=== PATIENT | female | born 1940 | race Caucasian/White ===

== ENCOUNTER 2016-08-06 07:17 | Day surgery (SDC) | payer OTHER, MEDICARE ==
[~2016-08-06] VITALS: Ht 162.6 cm; Wt 67.6 kg
[~2016-08-06 07:17] MED LIST: ACETAMINOPHEN325 M3 PO; ACYCLOVIR800 MG PO; ADULT LOW DOSE81 M1 PO; ADVIL,NUPRIN,M200 MG PO; ADVIL200 MG PO; ASPIR 8181 M1 PO; ASPIR-LOW81 MG PO; BENTYL20 MG PO; BUMEX2 MG PO; BUPROPION HCL100 M1 PO; CARDIZEM CD,CA240 MG PO; CARDIZEM CD240 MG PO; CEPHALEXIN500 MG PO; CIPRO500 MG PO; CLONIDINE HCL0.1 MG PO; COLACE100 MG PO; Coumadin,Jantoven PO; DICYCLOMINE HCL20 MG PO; DOXYCYCLINE HY100 M3 PO; DRONABINOL2.5 MG PO; DULCOLAX10 MG PR; FEOSOL325 MG PO; FERROUS SULFAT325 MG PO; FLEET ENEMA-AD118 ML PR; FLORASTOR250 MG PO; FUROSEMIDE80 MG; Feosol PO; GLIPIZIDE; GLIPIZIDE10 MG PO; GLUCAGON1 MG IM; GLUCOPHAGE1000 MG PO; GLUCOPHAGE500 MG PO; GLUCOTROL10 MG PO; Glucotrol PO; HUMALOG100 UNIT/1 SC; HUMALOG100 UNIT/2 SC; HYDRALAZINE HCL50 MG PO; IRON; IRON PILL; JANUVIA25 M1 PO; JANUVIA25 MG PO; Januvia PO; K-DUR20 MEQ PO; Keflex PO; LACTULOSE10 GM/151 PO; LANTUS 10100 UNITS/ SC; LANTUS 3 M100 UNITS1 SC; LASIX80 MG PO; LEVAQUIN500 MG PO; LEVAQUIN750 MG PO; LEVEMIR FL100 UNIT/1 SC; LEVEMIR FL100 UNITS/ SC; LEVEMIR100 UNIT/2 SC; LEVOTHYROXINE; LEVOTHYROXINE137 MCG PO; LEVOTHYROXINE150 MCG PO; LIPITOR10 MG PO; LISINOPRIL10 MG PO; LISINOPRIL2.5 MG PO; LOPRESSOR25 MG PO; LOSARTAN POTASS25 MG PO; LYRICA50 MG PO; Lantus 3 ml Solostar SC; Lasix PO; Levothroid,Synthroid PO; Lovenox SC; MELATIN3 MG PO; MELATONIN10 M2 PO; METOLAZONE2.5 MG PO; METOPROLOL TART25 MG PO; MILK OF MAGN PO; MIRALAX17 GM PO; MIRALAX255 GM PO; NORCO 5/3251 TABLET PO; NOVOLOG 10100 UNITS/ SC; NOVOLOG PE100 UNITS/ SC; NOVOLOG100 UNIT/1 SC; NovoLOG Pen 3 ml SC; PANTOPRAZOLE SO20 MG PO; PANTOPRAZOLE SO40 MG PO; PHENERGAN25 MG PR; PHILLIPS'311 MG PO; POTASSIUM CHLO20 ME1 PO; PROCRIT10000 UNI1 IV; PROTONIX20 MG PO; PROTONIX40 MG PO; SENNA PLUS TAB1 EACH PO; SENNA8.6 MG PO; SERTRALINE HCL100 MG PO; SIMVASTATIN; SIMVASTATIN20 MG PO; SYNTHROID125 MCG PO; SYNTHROID137 MCG PO; SYNTHROID150 MCG PO; TEST STRIPS MC; THEOPHYLLINE; TRAMADOL HCL50 MG PO; TYLENOL REGULA325 MG PO; ULTRAM50 MG PO; WELLBUTRIN; WELLBUTRIN XL300 MG PO; WELLBUTRIN100 M1 PO; Wellbutrin XL PO; ZETIA10 MG PO; ZOCOR20 MG PO; ZOFRAN ODT8 MG PO; ZOFRAN4 MG PO; ZOFRAN8 MG PO; ZOLOFT100 MG PO; ZOLOFT25 MG PO; Zetia PO; Zocor PO; Zoloft PO; glipizide; januvia; levothyroxine; potassium chloride; sertraline; simvastatin
[2016-08-06 07:55] LABS: MCH 34.4 PG (29.0-34.0); MCHC 33.1 G/DL (30.0-36.0); MCV 103.9 FL (83-99); PLATELET COUNT 107 K/uL (156-360); RBC DIS.WIDTH-CV 12.2 % (11.8-14.6); RBC DIS.WIDTH-SD 46.6 % (39-53); RED BLOOD COUNT 3.08 M/uL (3.80-5.20); WHITE BLOOD COUNT 3.3 K/uL (4.1-10.2)
[2016-08-06 08:34] VITALS: BP 168/77
[2016-08-06 08:37] LABS: ANION GAP 10 MEQ/L (2-14); CHLORIDE 92 MEQ/L (99-109); GFR ESTIMATE (CALCULATED) 13 mL/min/; POTASSIUM 4.1 MEQ/L (3.7-5.4); SAMPLE HEMOLYSIS CHECK 0; SAMPLE ICTERIC CHECK 0; SAMPLE LIPEMIA CHECK 0; SODIUM 132 MEQ/L (136-147); UREA NITROGEN (BUN) 46 mg/dL (9-23)
[2016-08-06 08:38] LABS: GLUCOSE 407 mg/dL (70-99)
[2016-08-06 09:14] LABS: METH RESISTANT S AUREUS PCR NEGATIVE (NEGATIVE); PROBE CHECK PASS; SPECIMEN PROCESSING CONTROL PASS
[2016-08-06 10:18] LABS: POINT-OF-CARE METER ID UU14174212
[2016-08-06 11:55] LABS: POINT-OF-CARE METER ID UU13113675
[2016-08-06 13:05] VITALS: BP 128/59
[2016-08-06 14:00] VITALS: BP 135/64
[2016-08-06 15:30] VITALS: BP 122/65
== END 2016-08-06 15:45 ==
LOC: SDC 07:17
PROVIDERS: Surgery
DX: I13.2 Hypertensive heart and chronic kidney disease with heart failure and with stage 5 chronic kidney disease, or end stage renal disease (principal); N18.6 End stage renal disease; I50.9 Heart failure, unspecified; Z99.2 Dependence on renal dialysis; E11.22 Type 2 diabetes mellitus with diabetic chronic kidney disease; K21.9 Gastro-esophageal reflux disease without esophagitis; E03.9 Hypothyroidism, unspecified; I25.10 Atherosclerotic heart disease of native coronary artery without angina pectoris; E78.00 Pure hypercholesterolemia, unspecified; Z88.0 Allergy status to penicillin; Z88.2 Allergy status to sulfonamides; Z79.82 Long term (current) use of aspirin; Z79.899 Other long term (current) drug therapy; Z87.891 Personal history of nicotine dependence
CPT/HCPCS: 80048; 82948; 85027; 87641; C1768; J0690; J1170; J1644; J2405; J2720; J2765; J3010

== ENCOUNTER 2016-10-04 11:08 | Day surgery (SDC) | payer OTHER, MEDICARE ==
[~2016-10-04] VITALS: Ht 160 cm; Wt 73.5 kg
[~2016-10-04 11:08] MED LIST changes: +ACIDOPHILUS LA1 EACH PO; +ANODYNE LPT 2.1 EACH TP; +ASPIRIN81 M2 PO; +BIOTENE MOISTUR45 ML PO; +NEURONTIN100 MG PO; +SILTUSSIN DM C473 ML PO
[2016-10-04 12:16] LABS: POINT-OF-CARE METER ID UU13113694
[2016-10-04 12:51] VITALS: BP 159/71
[2016-10-04 13:24] LABS: METH RESISTANT S AUREUS PCR NEGATIVE (NEGATIVE); PROBE CHECK PASS; SPECIMEN PROCESSING CONTROL PASS
[2016-10-04 14:44] LABS: POINT-OF-CARE METER ID UU13113694
[2016-10-04 15:19] LABS: POINT-OF-CARE METER ID UU13113694
[2016-10-04 16:17] LABS: POINT-OF-CARE METER ID UU13113675
[2016-10-04 16:35] VITALS: BP 130/62
[2016-10-04 17:26] VITALS: BP 153/68
== END 2016-10-04 17:40 ==
LOC: SDC 11:08
PROVIDERS: Surgery
PROC: 0HB4XZZ Excision of Neck Skin, External Approach (ICD-10-PCS; principal; 2016-10-04)
DX: L72.0 Epidermal cyst (principal); E78.5 Hyperlipidemia, unspecified; K21.9 Gastro-esophageal reflux disease without esophagitis; J45.909 Unspecified asthma, uncomplicated; I12.9 Hypertensive chronic kidney disease with stage 1 through stage 4 chronic kidney disease, or unspecified chronic kidney disease; E11.22 Type 2 diabetes mellitus with diabetic chronic kidney disease; N18.4 Chronic kidney disease, stage 4 (severe); F41.8 Other specified anxiety disorders; Z79.4 Long term (current) use of insulin; Z87.891 Personal history of nicotine dependence; Z88.0 Allergy status to penicillin; Z83.3 Family history of diabetes mellitus; Z80.3 Family history of malignant neoplasm of breast; Z82.5 Family history of asthma and other chronic lower respiratory diseases; Z82.49 Family history of ischemic heart disease and other diseases of the circulatory system; Z84.1 Family history of disorders of kidney and ureter
CPT/HCPCS: 82948; 87641; 88304; J0690; S0020

== ENCOUNTER 2017-01-28 15:16 | Inpatient (IN) | payer OTHER, MEDICARE ==
[~2017-01-28] VITALS: Ht 157.5 cm; Wt 70.1 kg
[2017-01-28 15:54] LABS: ADD MIUA? YES; BILIRUBIN NEGATIVE; BLOOD MODERATE; COLOR YELLOW ((YELLOW)); GLUCOSE (STRIP) NEGATIVE; KETONES NEGATIVE; LEUKOCYTES NEGATIVE; NITRITE NEGATIVE; PROTEIN (STRIP) 100; UROBILINOGEN 0.2 MG/DL (0.2-1.0)
[2017-01-28 16:00] LABS: BACTERIA NONE SEEN /HPF; EPITHELIAL CELLS RARE /HPF; MUCUS TRACE /LPF; RED BLOOD CELLS 20-30 /HPF (0-5); UCUL ADDED? NO; WHITE BLOOD CELLS 0-5 /HPF (0-5)
[2017-01-28 16:04] LABS: EOSINOPHIL (%) 0 % (0-5); IMMATURE GRANULOCYTE (%) 0.6 % (0.0-0.7); INSTRUMENT ABS NEUTROPHIL CT 4.8 K/uL; LYMPHOCYTE COUNT 0.1 K/uL (1.0-2.8); MCH 35.2 PG (29.0-34.0); MCHC 32.7 G/DL (30.0-36.0); MCV 107.6 FL (83-99); MEAN PLAT.VOLUME 8.9 uM^3 (9.5-12.4); MONOCYTE (%) 6.1 % (3-12); MONOCYTE COUNT 0.3 K/uL (0-0.8); NEUTROPHIL COUNT 4.8 K/uL (1.8-6.4); PLATELET COUNT 51 K/uL (156-360); RBC DIS.WIDTH-CV 14.4 % (11.8-14.6); RBC DIS.WIDTH-SD 57.3 % (39-53); RED BLOOD COUNT 3.44 M/uL (3.80-5.20); WHITE BLOOD COUNT 5.3 K/uL (4.1-10.2)
[2017-01-28 16:11] LABS: INTER. NORMALIZED RATIO 1.2
[2017-01-28 16:13] LABS: CHLORIDE 96 mEq/L (99-109); POTASSIUM 4.2 mEq/L (3.7-5.4); PTT 29.6 SEC (25-37); SODIUM 138 mEq/L (136-147)
[2017-01-28 16:16] LABS: GLUCOSE 156 mg/dL (70-99)
[2017-01-28 16:17] LABS: ANION GAP 13 MEQ/L (2-14); TOTAL BILIRUBIN 1.3 mg/dL (0.0-1.0)
[2017-01-28 16:19] LABS: ALKALINE PHOSPHATASE 145 IU/L (3-129); GFR ESTIMATE (CALCULATED) 18 mL/min/
[2017-01-28 16:20] LABS: UREA NITROGEN (BUN) 24 mg/dL (9-23)
[2017-01-28 16:23] LABS: LIPASE 25 U/L (1.0-51.0)
[2017-01-28 16:25] LABS: TROP-I INTERPRETATION NEGATIVE; TROPONIN-I 0.01 ng/mL (0.0-0.30)
[2017-01-28] MEDS ORDERED: PROTONIX40 MG PO (17:42)
[2017-01-28] MEDS ORDERED: ZOFRAN4 MG PO (17:42)
[2017-01-28] MEDS ORDERED: GABAPENTIN100 MG PO (17:43)
[2017-01-28] MEDS ORDERED: HYDROCODON-ACE1 EAC7 PO (17:44)
[2017-01-28] MEDS ORDERED: RENVELA0.8 GM PO (17:45)
[2017-01-28] MEDS ORDERED: RENVELA800 MG PO (17:46)
[2017-01-28] MEDS ORDERED: SENNA PLUS TAB1 EACH PO ×3 (17:48→18:33)
[2017-01-28] MEDS ORDERED: BUMEX2 MG PO (17:48)
[2017-01-28] MEDS ORDERED: BAYER CHEWABLE81 MG PO (17:48)
[2017-01-28] MEDS ORDERED: VITAMIN D32000 UNI1 PO (17:49)
[2017-01-28] MEDS ORDERED: SYNTHROID150 MCG PO (17:50)
[2017-01-28] MEDS ORDERED: MOBIC7.5 MG PO (17:50)
[2017-01-28] MEDS ORDERED: ZOLOFT100 MG PO (18:03)
[2017-01-28] MEDS ORDERED: EFFEXOR37.5 MG PO (18:04)
[2017-01-28] MEDS ORDERED: ACETAMINOPHEN325 M1 PO (18:05)
[2017-01-28] MEDS ORDERED: DULCOLAX10 MG PR (18:06)
[2017-01-28] MEDS ORDERED: FLEET ENEMA-AD118 ML PR (18:06)
[2017-01-28] MEDS ORDERED: PHENERGAN25 MG PR (18:08)
[2017-01-28] MEDS ORDERED: ULTRAM50 MG PO (18:17)
[2017-01-28] MEDS ORDERED: SERTRALINE HCL25 MG PO (18:20)
[2017-01-28] MEDS ORDERED: DAILY VITE1 EAC1 PO (18:21)
[2017-01-28] MEDS ORDERED: BIOTENE MOISTUR45 ML PO (18:22)
[2017-01-28] MEDS ORDERED: CARDIZEM CD120 MG PO (18:25)
[2017-01-28] MEDS ORDERED: ATORVASTATIN CA10 MG PO (18:25)
[2017-01-28] MEDS ORDERED: MELATIN3 MG PO (18:26)
[2017-01-28] MEDS ORDERED: ENULOSE10 GM/15 M PO (18:27)
[2017-01-28] MEDS ORDERED: SILTUSSIN100 MG/51 PO (18:29)
[2017-01-28] MEDS ORDERED: COLACE100 MG PO (18:31)
[2017-01-28] MEDS ORDERED: NORCO 5/3251 TABLET PO ×2 (18:43→18:44)
[2017-01-28] MEDS ORDERED: LEVEMIR100 UNIT/2 SC ×2 (19:35→19:36)
[2017-01-28] MEDS ORDERED: HUMALOG100 UNIT/1 SC (19:36)
[2017-01-28 22:17] LABS: INFLUENZA A VIRAL ANTIGEN NEGATIVE; INFLUENZA B VIRAL ANTIGEN NEGATIVE
[2017-01-28 22:42] VITALS: BP 122/55
[2017-01-29 03:15] VITALS: BP 125/59
[2017-01-29 05:38] LABS: EOSINOPHIL (%) 0 % (0-5); HEMATOCRIT 32.3 % (36.0-46.0); IMMATURE GRANULOCYTE (%) 0.6 % (0.0-0.7); INSTRUMENT ABS NEUTROPHIL CT 4.6 K/uL; LYMPHOCYTE COUNT 0.2 K/uL (1.0-2.8); MCH 35.6 PG (29.0-34.0); MCHC 32.5 G/DL (30.0-36.0); MCV 109.5 FL (83-99); MONOCYTE COUNT 0.3 K/uL (0-0.8); NEUTROPHIL (%) 89.5 % (45-76); NEUTROPHIL COUNT 4.6 K/uL (1.8-6.4); RBC DIS.WIDTH-CV 14.6 % (11.8-14.6); RBC DIS.WIDTH-SD 58.4 % (39-53); RED BLOOD COUNT 2.95 M/uL (3.80-5.20); WHITE BLOOD COUNT 5.2 K/uL (4.1-10.2)
[2017-01-29 05:42] LABS: IMM.PLATELET FRACTION 1.2 (1-7); MEAN PLAT.VOLUME 9.2 uM^3 (9.5-12.4); PLATELET COUNT 57 K/uL (156-360)
[2017-01-29 06:03] LABS: ANION GAP 11 MEQ/L (2-14); CHLORIDE 98 MEQ/L (99-109); GFR ESTIMATE (CALCULATED) 15 mL/min/; POTASSIUM 4.5 MEQ/L (3.7-5.4); SAMPLE HEMOLYSIS CHECK 0; SAMPLE ICTERIC CHECK 0; SAMPLE LIPEMIA CHECK 0; SODIUM 138 MEQ/L (136-147); UREA NITROGEN (BUN) 34 mg/dL (9-23)
[2017-01-29 06:06] LABS: GLUCOSE 318 mg/dL (70-99)
[2017-01-29 07:38] VITALS: BP 146/70
[2017-01-29 07:39] LABS: METH RESISTANT S AUREUS PCR POSITIVE (NEGATIVE)
[2017-01-29 07:40] LABS: PROBE CHECK PASS
[2017-01-29 07:57] LABS: POINT-OF-CARE METER ID UU13113781
[2017-01-29 11:31] LABS: POINT-OF-CARE METER ID UU14314088
[2017-01-29 11:39] VITALS: BP 115/57
[2017-01-29 15:32] VITALS: BP 135/63
[2017-01-29 20:36] VITALS: BP 119/57
[2017-01-29 23:53] VITALS: BP 132/63
[2017-01-30 04:29] VITALS: BP 127/60
[2017-01-30 08:26] LABS: POINT-OF-CARE METER ID UU14174216
[2017-01-30 09:17] VITALS: BP 137/60
[2017-01-30 09:35] LABS: POINT-OF-CARE METER ID UU14314088
[2017-01-30 11:49] VITALS: BP 145/65
[2017-01-30 11:51] LABS: POINT-OF-CARE METER ID UU14174216
[2017-01-30 12:16] LABS: POINT-OF-CARE METER ID UU13113781
[2017-01-30 14:59] VITALS: BP 149/65
[2017-01-30 15:20] LABS: POINT-OF-CARE METER ID UU13113675
[2017-01-30 16:24] LABS: POINT-OF-CARE METER ID UU13113675; POINT-OF-CARE USER ID ADMKMM76
[2017-01-30 20:18] VITALS: BP 140/62
[2017-01-30 21:11] LABS: POINT-OF-CARE METER ID UU13113781
[2017-01-31 00:58] VITALS: BP 173/59
[2017-01-31 05:16] LABS: EOSINOPHIL (%) 0 % (0-5); HEMATOCRIT 29.8 % (36.0-46.0); IMMATURE GRANULOCYTE (%) 0.3 % (0.0-0.7); INSTRUMENT ABS NEUTROPHIL CT 2.4 K/uL; LYMPHOCYTE COUNT 0.3 K/uL (1.0-2.8); MCH 36.3 PG (29.0-34.0); MCHC 34.2 G/DL (30.0-36.0); MEAN PLAT.VOLUME 10.1 uM^3 (9.5-12.4); MONOCYTE (%) 12.7 % (3-12); MONOCYTE COUNT 0.4 K/uL (0-0.8); NEUTROPHIL (%) 76.8 % (45-76); NEUTROPHIL COUNT 2.4 K/uL (1.8-6.4); PLATELET COUNT 57 K/uL (156-360); RBC DIS.WIDTH-CV 13.4 % (11.8-14.6); RBC DIS.WIDTH-SD 52.7 % (39-53); RED BLOOD COUNT 2.81 M/uL (3.80-5.20); WHITE BLOOD COUNT 3.1 K/uL (4.1-10.2)
[2017-01-31 05:43] VITALS: BP 162/67
[2017-01-31 05:44] LABS: ANION GAP 12 MEQ/L (2-14); CHLORIDE 98 MEQ/L (99-109); GFR ESTIMATE (CALCULATED) 13 mL/min/; GLUCOSE 319 mg/dL (70-99); POTASSIUM 4.2 MEQ/L (3.7-5.4); SAMPLE HEMOLYSIS CHECK 0; SAMPLE ICTERIC CHECK 0; SAMPLE LIPEMIA CHECK 0; SODIUM 132 MEQ/L (136-147); UREA NITROGEN (BUN) 50 mg/dL (9-23)
[2017-01-31 07:42] VITALS: BP 175/76
[2017-01-31 07:55] LABS: POINT-OF-CARE METER ID UU14314088
[2017-01-31 10:54] VITALS: BP 168/72
[2017-01-31 11:08] LABS: POINT-OF-CARE METER ID UU14174216
[2017-01-31 13:01] LABS: C DIFF TOXIN NEGATIVE (NEGATIVE)
[2017-01-31 13:03] LABS: PROBE CHECK PASS; SPECIMEN PROCESSING CONTROL PASS
[2017-01-31 16:55] LABS: POINT-OF-CARE METER ID UU14174216
[2017-01-31 20:19] VITALS: BP 187/87
[2017-01-31 20:57] LABS: POINT-OF-CARE METER ID UU14174216
[2017-02-01] VITALS (7 sets, daily range): BP systolic 146–165; BP diastolic 65–87
[2017-02-01 05:55] LABS: EOSINOPHIL (%) 0 % (0-5); HEMATOCRIT 33.3 % (36.0-46.0); IMMATURE GRANULOCYTE (%) 0.6 % (0.0-0.7); INSTRUMENT ABS NEUTROPHIL CT 5.4 K/uL; LYMPHOCYTE COUNT 0.7 K/uL (1.0-2.8); MCH 36.1 PG (29.0-34.0); MCHC 34.8 G/DL (30.0-36.0); MCV 103.7 FL (83-99); MEAN PLAT.VOLUME 9.8 uM^3 (9.5-12.4); MONOCYTE (%) 11.1 % (3-12); MONOCYTE COUNT 0.8 K/uL (0-0.8); NEUTROPHIL (%) 77.8 % (45-76); NEUTROPHIL COUNT 5.4 K/uL (1.8-6.4); RBC DIS.WIDTH-CV 13.8 % (11.8-14.6); RBC DIS.WIDTH-SD 53.1 % (39-53); RED BLOOD COUNT 3.21 M/uL (3.80-5.20)
[2017-02-01 05:57] LABS: PLATELET COUNT 102 K/uL (156-360)
[2017-02-01 06:21] LABS: ANION GAP 12 MEQ/L (2-14); CHLORIDE 101 MEQ/L (99-109); GFR ESTIMATE (CALCULATED) 14 mL/min/; GLUCOSE 201 mg/dL (70-99); POTASSIUM 3.6 MEQ/L (3.7-5.4); SAMPLE HEMOLYSIS CHECK 0; SAMPLE ICTERIC CHECK 0; SAMPLE LIPEMIA CHECK 0; SODIUM 134 MEQ/L (136-147); UREA NITROGEN (BUN) 45 mg/dL (9-23)
[2017-02-01 08:22] LABS: POINT-OF-CARE METER ID UU13113698; POINT-OF-CARE USER ID NUTSLF44
[2017-02-01 09:20] LABS: VANCOMYCIN, TROUGH 19.3 MCG/ML (10-20)
[2017-02-01 11:51] LABS: POINT-OF-CARE METER ID UU13113698; POINT-OF-CARE USER ID NUTSLF44
[2017-02-01 17:03] LABS: POINT-OF-CARE METER ID UU13113781; POINT-OF-CARE USER ID NUTSLF44
[2017-02-01 20:56] LABS: POINT-OF-CARE METER ID UU14174216
[2017-02-02 03:31] VITALS: BP 130/80
[2017-02-02 07:48] VITALS: BP 146/83
[2017-02-02 08:00] LABS: POINT-OF-CARE METER ID UU13113781
[2017-02-02 08:17] LABS: POINT-OF-CARE METER ID UU13113698
[2017-02-02 08:40] LABS: POINT-OF-CARE METER ID UU13113698
[2017-02-02 11:28] VITALS: BP 140/62
[2017-02-02 11:44] LABS: POINT-OF-CARE METER ID UU13113698
[2017-02-02 15:04] VITALS: BP 171/77
[2017-02-02 16:36] LABS: POINT-OF-CARE METER ID UU13113698
[2017-02-02 19:10] VITALS: BP 149/71
[2017-02-02 20:54] LABS: POINT-OF-CARE METER ID UU14174216
[2017-02-02 22:53] VITALS: BP 144/63
[2017-02-03 02:54] LABS: POINT-OF-CARE METER ID UU14174216
[2017-02-03 05:03] VITALS: BP 158/81
[2017-02-03 05:30] LABS: EOSINOPHIL (%) 0 % (0-5); HEMATOCRIT 32.4 % (36.0-46.0); IMMATURE GRANULOCYTE (%) 0.7 % (0.0-0.7); IMMATURE GRANULOCYTE COUNT 0.1 K/uL; INSTRUMENT ABS NEUTROPHIL CT 6.1 K/uL; LYMPHOCYTE COUNT 1.4 K/uL (1.0-2.8); MCH 36.9 PG (29.0-34.0); MCHC 34.9 G/DL (30.0-36.0); MCV 105.9 FL (83-99); MEAN PLAT.VOLUME 10.1 uM^3 (9.5-12.4); MONOCYTE (%) 12.8 % (3-12); MONOCYTE COUNT 1.1 K/uL (0-0.8); NEUTROPHIL (%) 69.8 % (45-76); NEUTROPHIL COUNT 6.1 K/uL (1.8-6.4); PLATELET COUNT 119 K/uL (156-360); RBC DIS.WIDTH-CV 14.1 % (11.8-14.6); RBC DIS.WIDTH-SD 54.4 % (39-53); RED BLOOD COUNT 3.06 M/uL (3.80-5.20); WHITE BLOOD COUNT 8.7 K/uL (4.1-10.2)
[2017-02-03 06:11] LABS: ANION GAP 8 MEQ/L (2-14); CHLORIDE 99 MEQ/L (99-109); GFR ESTIMATE (CALCULATED) 15 mL/min/; SAMPLE HEMOLYSIS CHECK 0; SAMPLE ICTERIC CHECK 0; SAMPLE LIPEMIA CHECK 0; SODIUM 132 MEQ/L (136-147); UREA NITROGEN (BUN) 36 mg/dL (9-23)
[2017-02-03 06:12] LABS: GLUCOSE 64 mg/dL (70-99)
[2017-02-03 07:05] LABS: POINT-OF-CARE METER ID UU14174216
[2017-02-03 08:17] VITALS: BP 139/64
[2017-02-03 09:06] LABS: POINT-OF-CARE METER ID UU14174216; POINT-OF-CARE USER ID NUTSLF44
[2017-02-03 10:14] LABS: POINT-OF-CARE METER ID UU14174216; POINT-OF-CARE USER ID NUTSLF44
[2017-02-03 11:35] VITALS: BP 142/73
[2017-02-03 13:02] LABS: POINT-OF-CARE METER ID UU14174216; POINT-OF-CARE USER ID NUTSLF44
[2017-02-03 16:09] VITALS: BP 155/65
[2017-02-03 17:30] LABS: POINT-OF-CARE METER ID UU14174216; POINT-OF-CARE USER ID NUTSLF44
[2017-02-03 19:11] VITALS: BP 143/67
[2017-02-03 21:11] LABS: POINT-OF-CARE METER ID UU14174216
[2017-02-03 23:39] VITALS: BP 133/68
[2017-02-04 03:18] VITALS: BP 134/60
[2017-02-04 06:43] LABS: POINT-OF-CARE METER ID UU14174216
[2017-02-04 06:48] VITALS: BP 119/72
[2017-02-04 07:52] LABS: EOSINOPHIL (%) 0 % (0-5); HEMATOCRIT 28.6 % (36.0-46.0); IMMATURE GRANULOCYTE (%) 0.6 % (0.0-0.7); INSTRUMENT ABS NEUTROPHIL CT 3.8 K/uL; LYMPHOCYTE COUNT 0.9 K/uL (1.0-2.8); MCH 35.7 PG (29.0-34.0); MCHC 33.9 G/DL (30.0-36.0); MCV 105.1 FL (83-99); MEAN PLAT.VOLUME 9.2 uM^3 (9.5-12.4); MONOCYTE (%) 10.4 % (3-12); MONOCYTE COUNT 0.6 K/uL (0-0.8); NEUTROPHIL (%) 72.4 % (45-76); NEUTROPHIL COUNT 3.8 K/uL (1.8-6.4); PLATELET COUNT 118 K/uL (156-360); RBC DIS.WIDTH-CV 13.8 % (11.8-14.6); RBC DIS.WIDTH-SD 53.1 % (39-53); RED BLOOD COUNT 2.72 M/uL (3.80-5.20); WHITE BLOOD COUNT 5.3 K/uL (4.1-10.2)
[2017-02-04 08:01] LABS: ANION GAP 10 MEQ/L (2-14); CHLORIDE 100 MEQ/L (99-109); POTASSIUM 4.1 MEQ/L (3.7-5.4); SAMPLE HEMOLYSIS CHECK 0; SAMPLE ICTERIC CHECK 0; SAMPLE LIPEMIA CHECK 0; SODIUM 132 MEQ/L (136-147)
[2017-02-04 08:11] LABS: GFR ESTIMATE (CALCULATED) 17 mL/min/; UREA NITROGEN (BUN) 35 mg/dL (9-23)
[2017-02-04 08:16] LABS: GLUCOSE 184 mg/dL (70-99)
[2017-02-04 11:18] LABS: POINT-OF-CARE METER ID UU13113681
[2017-02-04 11:37] VITALS: BP 123/59
[2017-02-04 16:29] LABS: POINT-OF-CARE METER ID UU14174216
[2017-02-04 16:54] LABS: POINT-OF-CARE METER ID UU14174216
[2017-02-04 16:57] VITALS: BP 143/66
[2017-02-04 19:50] VITALS: BP 147/67
[2017-02-04 21:23] LABS: POINT-OF-CARE METER ID UU13113781
[2017-02-05] VITALS (7 sets, daily range): BP systolic 112–167; BP diastolic 44–81
[2017-02-05 04:27] LABS: POINT-OF-CARE METER ID UU13113781
[2017-02-05 05:30] LABS: HEMATOCRIT 30.4 % (36.0-46.0); MCH 36.5 PG (29.0-34.0); MCHC 34.2 G/DL (30.0-36.0); MCV 106.7 FL (83-99); MEAN PLAT.VOLUME 9.4 uM^3 (9.5-12.4); PLATELET COUNT 141 K/uL (156-360); RBC DIS.WIDTH-CV 13.9 % (11.8-14.6); RBC DIS.WIDTH-SD 53.9 % (39-53); RED BLOOD COUNT 2.85 M/uL (3.80-5.20); WHITE BLOOD COUNT 5.2 K/uL (4.1-10.2)
[2017-02-05 05:48] LABS: GLUCOSE 134 mg/dL (70-99)
[2017-02-05 05:58] LABS: ALKALINE PHOSPHATASE 88 IU/L (3-129); ANION GAP 11 MEQ/L (2-14); CHLORIDE 102 MEQ/L (99-109); GFR ESTIMATE (CALCULATED) 20 mL/min/; GLUCOSE 140 mg/dL (70-99); POTASSIUM 3.3 MEQ/L (3.7-5.4); SAMPLE HEMOLYSIS CHECK 0; SAMPLE ICTERIC CHECK 0; SAMPLE LIPEMIA CHECK 0; SODIUM 136 MEQ/L (136-147); UREA NITROGEN (BUN) 20 mg/dL (9-23)
[2017-02-05 09:34] LABS: POINT-OF-CARE METER ID UU13113781
[2017-02-05 11:20] LABS: POINT-OF-CARE METER ID UU13113781
[2017-02-05 16:21] LABS: POINT-OF-CARE METER ID UU13113698
[2017-02-05 21:07] LABS: POINT-OF-CARE METER ID UU13113698
[2017-02-06 01:55] LABS: POINT-OF-CARE METER ID UU13113698
[2017-02-06 03:30] VITALS: BP 154/73
[2017-02-06 06:49] LABS: EOSINOPHIL (%) 0 % (0-5); HEMATOCRIT 28.1 % (36.0-46.0); IMMATURE GRANULOCYTE (%) 0.6 % (0.0-0.7); LYMPHOCYTE COUNT 0.7 K/uL (1.0-2.8); MCH 36.6 PG (29.0-34.0); MCHC 33.5 G/DL (30.0-36.0); MCV 109.3 FL (83-99); MEAN PLAT.VOLUME 9.4 uM^3 (9.5-12.4); MONOCYTE (%) 12.3 % (3-12); NEUTROPHIL (%) 72.4 % (45-76); PLATELET COUNT 116 K/uL (156-360); RBC DIS.WIDTH-CV 14.3 % (11.8-14.6); RBC DIS.WIDTH-SD 56.4 % (39-53); RED BLOOD COUNT 2.57 M/uL (3.80-5.20)
[2017-02-06 06:50] LABS: INSTRUMENT ABS NEUTROPHIL CT 3.6 K/uL; MONOCYTE COUNT 0.6 K/uL (0-0.8); NEUTROPHIL COUNT 3.6 K/uL (1.8-6.4)
[2017-02-06 07:02] LABS: ANION GAP 9 MEQ/L (2-14); CHLORIDE 101 MEQ/L (99-109); GFR ESTIMATE (CALCULATED) 17 mL/min/; GLUCOSE 256 mg/dL (70-99); POTASSIUM 4.8 MEQ/L (3.7-5.4); SAMPLE HEMOLYSIS CHECK 0; SAMPLE ICTERIC CHECK 0; SAMPLE LIPEMIA CHECK 0; SODIUM 134 MEQ/L (136-147); UREA NITROGEN (BUN) 23 mg/dL (9-23); VANCOMYCIN, TROUGH 20.9 MCG/ML (10-20)
[2017-02-06 08:09] LABS: POINT-OF-CARE METER ID UU13113698; POINT-OF-CARE USER ID NUTSLF44
[2017-02-06 12:17] LABS: POINT-OF-CARE METER ID UU13113698; POINT-OF-CARE USER ID NUTSLF44
[2017-02-06 12:26] LABS: POINT-OF-CARE METER ID UU13113698
[2017-02-06 12:50] VITALS: BP 136/90
[2017-02-06 15:02] VITALS: BP 143/63
[2017-02-06 16:48] LABS: POINT-OF-CARE METER ID UU13113698; POINT-OF-CARE USER ID NUTSLF44
[2017-02-06 20:32] VITALS: BP 116/58
[2017-02-06 21:10] LABS: POINT-OF-CARE METER ID UU14174216
[2017-02-07 00:14] VITALS: BP 165/89
[2017-02-07 04:28] LABS: POINT-OF-CARE METER ID UU14174216
[2017-02-07 05:48] VITALS: BP 166/79
[2017-02-07 08:24] LABS: EOSINOPHIL (%) 0.2 % (0-5); HEMATOCRIT 28.3 % (36.0-46.0); IMMATURE GRANULOCYTE (%) 0.3 % (0.0-0.7); INSTRUMENT ABS NEUTROPHIL CT 4.7 K/uL; MCHC 33.6 G/DL (30.0-36.0); MCV 107.2 FL (83-99); MEAN PLAT.VOLUME 9.2 uM^3 (9.5-12.4); MONOCYTE (%) 11.1 % (3-12); MONOCYTE COUNT 0.7 K/uL (0-0.8); NEUTROPHIL (%) 73.1 % (45-76); NEUTROPHIL COUNT 4.7 K/uL (1.8-6.4); PLATELET COUNT 138 K/uL (156-360); RBC DIS.WIDTH-CV 14.3 % (11.8-14.6); RBC DIS.WIDTH-SD 55.1 % (39-53); RED BLOOD COUNT 2.64 M/uL (3.80-5.20); WHITE BLOOD COUNT 6.4 K/uL (4.1-10.2)
[2017-02-07 08:34] LABS: ANION GAP 9 MEQ/L (2-14); CHLORIDE 105 MEQ/L (99-109); SAMPLE HEMOLYSIS CHECK 0; SAMPLE ICTERIC CHECK 0; SAMPLE LIPEMIA CHECK 0; SODIUM 137 MEQ/L (136-147)
[2017-02-07 08:41] LABS: GFR ESTIMATE (CALCULATED) 17 mL/min/; UREA NITROGEN (BUN) 21 mg/dL (9-23)
[2017-02-07 08:43] LABS: GLUCOSE 95 mg/dL (70-99)
[2017-02-07 10:44] LABS: HBSG INDEX 0.25; HEPATITIS B SURFACE ANTIBODY Nonreactive
[2017-02-07 12:07] LABS: POINT-OF-CARE METER ID UU14174216
[2017-02-07 13:06] VITALS: BP 132/62
[2017-02-07 16:58] VITALS: BP 138/61
[2017-02-07 17:08] LABS: POINT-OF-CARE METER ID UU14174216
[2017-02-07 20:00] VITALS: BP 124/74
[2017-02-07 20:43] LABS: POINT-OF-CARE METER ID UU13113698
[2017-02-08] VITALS (9 sets, daily range): BP systolic 94–156; BP diastolic 52–113
[2017-02-08 08:15] LABS: POINT-OF-CARE METER ID UU13113698; POINT-OF-CARE USER ID NUTSLF44
[2017-02-08 09:01] LABS: RESEND RESULTS RESEND RESULTS
[2017-02-08 11:53] LABS: POINT-OF-CARE METER ID UU13113698; POINT-OF-CARE USER ID NUTSLF44
[2017-02-08 17:35] LABS: POINT-OF-CARE METER ID UU14174216; POINT-OF-CARE USER ID NUTSLF44
[2017-02-08 21:08] LABS: POINT-OF-CARE METER ID UU14174216
[2017-02-09 03:42] VITALS: BP 131/60
[2017-02-09 06:04] LABS: GFR ESTIMATE (CALCULATED) 14 mL/min/
[2017-02-09 08:14] LABS: POINT-OF-CARE METER ID UU13113781
[2017-02-09 09:17] VITALS: BP 142/59
[2017-02-09 11:41] LABS: POINT-OF-CARE METER ID UU13113781
[2017-02-09 12:04] LABS: ANION GAP 10 MEQ/L (2-14); CHLORIDE 99 MEQ/L (99-109); POTASSIUM 4.1 MEQ/L (3.7-5.4); SODIUM 131 MEQ/L (136-147); UREA NITROGEN (BUN) 21 mg/dL (9-23)
[2017-02-09 12:05] LABS: GLUCOSE 227 mg/dL (70-99)
[2017-02-09 12:29] LABS: HEMATOCRIT 23.3 % (36.0-46.0); MCH 35.9 PG (29.0-34.0); MCHC 33.5 G/DL (30.0-36.0); MCV 107.4 FL (83-99); RBC DIS.WIDTH-CV 14.8 % (11.8-14.6); RBC DIS.WIDTH-SD 58.5 % (39-53); RED BLOOD COUNT 2.17 M/uL (3.80-5.20)
[2017-02-09 12:48] LABS: MEAN PLAT.VOLUME 9.5 uM^3 (9.5-12.4); PLAT.SUFFICIENCY DECREASED
[2017-02-09 12:53] LABS: PLATELET COUNT 95 K/uL (156-360)
[2017-02-09 16:36] LABS: POINT-OF-CARE METER ID UU14174216
[2017-02-09 19:56] VITALS: BP 126/53
[2017-02-09 21:22] LABS: GLUCOSE 408 mg/dL (70-99)
[2017-02-09 23:05] VITALS: BP 104/56
[2017-02-10 02:59] LABS: POINT-OF-CARE METER ID UU13113781
[2017-02-10 03:00] VITALS: BP 113/59
[2017-02-10 04:47] LABS: POINT-OF-CARE METER ID UU13113781
[2017-02-10 07:19] VITALS: BP 117/61
[2017-02-10 07:50] LABS: POINT-OF-CARE METER ID UU13113781
[2017-02-10 11:28] LABS: EOSINOPHIL (%) 0 % (0-5); IMMATURE GRANULOCYTE (%) 0.3 % (0.0-0.7); INSTRUMENT ABS NEUTROPHIL CT 2.8 K/uL; LYMPHOCYTE COUNT 0.6 K/uL (1.0-2.8); MCH 35.9 PG (29.0-34.0); MCHC 33.3 G/DL (30.0-36.0); MCV 107.6 FL (83-99); MONOCYTE (%) 10.4 % (3-12); MONOCYTE COUNT 0.4 K/uL (0-0.8); NEUTROPHIL (%) 74.1 % (45-76); NEUTROPHIL COUNT 2.8 K/uL (1.8-6.4); PLATELET COUNT 89 K/uL (156-360); RBC DIS.WIDTH-CV 14.7 % (11.8-14.6); RBC DIS.WIDTH-SD 58.1 % (39-53); RED BLOOD COUNT 2.23 M/uL (3.80-5.20); WHITE BLOOD COUNT 3.7 K/uL (4.1-10.2)
[2017-02-10 11:50] LABS: IRON 83 MCG/DL (35-150)
[2017-02-10 12:02] LABS: POINT-OF-CARE METER ID UU13113698
[2017-02-10 12:24] VITALS: BP 133/60
[2017-02-10 16:26] LABS: POINT-OF-CARE METER ID UU13113781
[2017-02-10 16:36] VITALS: BP 170/70
[2017-02-10 19:21] VITALS: BP 167/77
[2017-02-10 20:16] LABS: POINT-OF-CARE METER ID UU13113698
[2017-02-10 23:00] VITALS: BP 156/76
[2017-02-11 04:50] VITALS: BP 159/77
[2017-02-11 06:08] LABS: POINT-OF-CARE METER ID UU13113698
[2017-02-11 08:34] LABS: EOSINOPHIL (%) 0 % (0-5); HEMATOCRIT 28.6 % (36.0-46.0); IMMATURE GRANULOCYTE (%) 0.3 % (0.0-0.7); INSTRUMENT ABS NEUTROPHIL CT 5.4 K/uL; LYMPHOCYTE COUNT 0.7 K/uL (1.0-2.8); MCH 36.8 PG (29.0-34.0); MCV 105.1 FL (83-99); MEAN PLAT.VOLUME 9.5 uM^3 (9.5-12.4); MONOCYTE (%) 8.8 % (3-12); MONOCYTE COUNT 0.6 K/uL (0-0.8); NEUTROPHIL (%) 80.4 % (45-76); NEUTROPHIL COUNT 5.4 K/uL (1.8-6.4); RBC DIS.WIDTH-CV 14.4 % (11.8-14.6); RBC DIS.WIDTH-SD 55.8 % (39-53); WHITE BLOOD COUNT 6.7 K/uL (4.1-10.2)
[2017-02-11 08:35] LABS: PLATELET COUNT 122 K/uL (156-360); RED BLOOD COUNT 2.72 M/uL (3.80-5.20)
[2017-02-11 08:44] LABS: ANION GAP 12 MEQ/L (2-14); CHLORIDE 98 MEQ/L (99-109); GLUCOSE 297 mg/dL (70-99); POTASSIUM 4.3 MEQ/L (3.7-5.4); SAMPLE HEMOLYSIS CHECK 0; SAMPLE ICTERIC CHECK 0; SAMPLE LIPEMIA CHECK 0; SODIUM 132 MEQ/L (136-147); UREA NITROGEN (BUN) 21 mg/dL (9-23)
[2017-02-11 08:46] LABS: GFR ESTIMATE (CALCULATED) 18 mL/min/
[2017-02-11 10:29] LABS: POINT-OF-CARE METER ID UU14174216
[2017-02-11 12:21] VITALS: BP 71/32
[2017-02-11 12:35] LABS: POINT-OF-CARE METER ID UU14174216
[2017-02-11 15:18] VITALS: BP 121/57
[2017-02-11 16:37] LABS: POINT-OF-CARE METER ID UU13113781
[2017-02-11 17:00] VITALS: BP 122/56
[2017-02-11 19:41] VITALS: BP 123/65
[2017-02-11 20:55] LABS: POINT-OF-CARE METER ID UU14174216
[2017-02-11 23:00] VITALS: BP 88/52
[2017-02-12] VITALS (7 sets, daily range): BP systolic 92–115; BP diastolic 40–76
[2017-02-12 05:40] LABS: POINT-OF-CARE METER ID UU13113781
[2017-02-12 05:56] LABS: POINT-OF-CARE METER ID UU13113781
[2017-02-12 08:03] LABS: POINT-OF-CARE METER ID UU13113781
[2017-02-12 11:47] LABS: POINT-OF-CARE METER ID UU13113781
[2017-02-12 21:41] LABS: POINT-OF-CARE METER ID UU13113698
[2017-02-13 03:30] VITALS: BP 116/60
[2017-02-13 06:03] LABS: EOSINOPHIL (%) 0 % (0-5); IMMATURE GRANULOCYTE (%) 0.2 % (0.0-0.7); INSTRUMENT ABS NEUTROPHIL CT 2.9 K/uL; LYMPHOCYTE COUNT 1.2 K/uL (1.0-2.8); MCH 38.2 PG (29.0-34.0); MEAN PLAT.VOLUME 9.6 uM^3 (9.5-12.4); MONOCYTE (%) 11.9 % (3-12); MONOCYTE COUNT 0.5 K/uL (0-0.8); NEUTROPHIL (%) 62.6 % (45-76); NEUTROPHIL COUNT 2.9 K/uL (1.8-6.4); PLATELET COUNT 92 K/uL (156-360); RBC DIS.WIDTH-CV 14.6 % (11.8-14.6); RBC DIS.WIDTH-SD 57.4 % (39-53); WHITE BLOOD COUNT 4.6 K/uL (4.1-10.2)
[2017-02-13 06:04] LABS: MCV 109.1 FL (83-99)
[2017-02-13 06:13] LABS: ANION GAP 8 MEQ/L (2-14); CHLORIDE 103 MEQ/L (99-109); GFR ESTIMATE (CALCULATED) 15 mL/min/; POTASSIUM 3.8 MEQ/L (3.7-5.4); SAMPLE HEMOLYSIS CHECK 0; SAMPLE ICTERIC CHECK 0; SAMPLE LIPEMIA CHECK 0; SODIUM 136 MEQ/L (136-147); UREA NITROGEN (BUN) 19 mg/dL (9-23)
[2017-02-13 06:14] LABS: GLUCOSE 70 mg/dL (70-99)
[2017-02-13 07:26] LABS: POINT-OF-CARE METER ID UU13113698; POINT-OF-CARE USER ID NUTSLF44
[2017-02-13 07:31] VITALS: BP 124/60
[2017-02-13 07:52] LABS: POINT-OF-CARE METER ID UU14174216
[2017-02-13 08:32] LABS: POINT-OF-CARE METER ID UU14174216
[2017-02-13 11:36] LABS: POINT-OF-CARE METER ID UU14174216
[2017-02-13 11:48] VITALS: BP 110/58
[2017-02-13 16:03] LABS: POINT-OF-CARE METER ID UU13113698
[2017-02-13 16:12] LABS: POINT-OF-CARE METER ID UU14174216
[2017-02-13 16:24] VITALS: BP 132/56
[2017-02-13 19:31] VITALS: BP 106/55
[2017-02-13 21:50] LABS: POINT-OF-CARE METER ID UU13113781
[2017-02-13 23:58] VITALS: BP 104/58
[2017-02-14 00:04] LABS: POINT-OF-CARE METER ID UU13113781
[2017-02-14 04:19] VITALS: BP 144/63
[2017-02-14 05:04] LABS: EOSINOPHIL (%) 0 % (0-5); HEMATOCRIT 24.4 % (36.0-46.0); IMMATURE GRANULOCYTE (%) 0.3 % (0.0-0.7); INSTRUMENT ABS NEUTROPHIL CT 2.5 K/uL; LYMPHOCYTE COUNT 0.8 K/uL (1.0-2.8); MCH 36.1 PG (29.0-34.0); MCHC 33.6 G/DL (30.0-36.0); MCV 107.5 FL (83-99); MEAN PLAT.VOLUME 9.5 uM^3 (9.5-12.4); MONOCYTE (%) 10.4 % (3-12); MONOCYTE COUNT 0.4 K/uL (0-0.8); NEUTROPHIL (%) 67.9 % (45-76); NEUTROPHIL COUNT 2.5 K/uL (1.8-6.4); PLATELET COUNT 86 K/uL (156-360); RBC DIS.WIDTH-CV 13.9 % (11.8-14.6); RBC DIS.WIDTH-SD 54.9 % (39-53); RED BLOOD COUNT 2.27 M/uL (3.80-5.20); WHITE BLOOD COUNT 3.7 K/uL (4.1-10.2)
[2017-02-14 05:18] LABS: CHLORIDE 99 mEq/L (99-109)
[2017-02-14 05:19] LABS: POTASSIUM 4.2 mEq/L (3.7-5.4)
[2017-02-14 05:22] LABS: ANION GAP 4 MEQ/L (2-14)
[2017-02-14 05:24] LABS: GFR ESTIMATE (CALCULATED) 14 mL/min/
[2017-02-14 05:25] LABS: GLUCOSE 351 mg/dL (70-99); SODIUM 127 mEq/L (136-147); UREA NITROGEN (BUN) 20 mg/dL (9-23)
[2017-02-14 06:12] LABS: VANCOMYCIN, TROUGH 15.3 MCG/ML (10-20)
[2017-02-14 07:16] VITALS: BP 155/67
[2017-02-14 08:22] LABS: POINT-OF-CARE METER ID UU13113781
[2017-02-14 11:24] LABS: POINT-OF-CARE METER ID UU13113781
[2017-02-14 11:28] VITALS: BP 126/58
[2017-02-14 16:56] VITALS: BP 151/70
[2017-02-14 19:00] VITALS: BP 130/65
[2017-02-14 21:08] LABS: POINT-OF-CARE METER ID UU14174216
[2017-02-15 00:01] VITALS: BP 117/51
[2017-02-15 01:38] LABS: POINT-OF-CARE METER ID UU13113781
[2017-02-15 02:56] VITALS: BP 128/60
[2017-02-15 06:42] LABS: EOSINOPHIL (%) 0 % (0-5); HEMATOCRIT 23.9 % (36.0-46.0); IMMATURE GRANULOCYTE (%) 0.6 % (0.0-0.7); INSTRUMENT ABS NEUTROPHIL CT 2.2 K/uL; LYMPHOCYTE COUNT 0.9 K/uL (1.0-2.8); MCH 37.2 PG (29.0-34.0); MCHC 34.7 G/DL (30.0-36.0); MCV 107.2 FL (83-99); MEAN PLAT.VOLUME 9.3 uM^3 (9.5-12.4); MONOCYTE COUNT 0.4 K/uL (0-0.8); NEUTROPHIL (%) 62.2 % (45-76); NEUTROPHIL COUNT 2.2 K/uL (1.8-6.4); PLATELET COUNT 88 K/uL (156-360); RBC DIS.WIDTH-CV 14.5 % (11.8-14.6); RBC DIS.WIDTH-SD 55.4 % (39-53); RED BLOOD COUNT 2.23 M/uL (3.80-5.20); WHITE BLOOD COUNT 3.5 K/uL (4.1-10.2)
[2017-02-15 06:58] LABS: POINT-OF-CARE METER ID UU14162508
[2017-02-15 07:04] LABS: ANION GAP 7 MEQ/L (2-14); CHLORIDE 100 MEQ/L (99-109); GFR ESTIMATE (CALCULATED) 13 mL/min/; POTASSIUM 4.5 MEQ/L (3.7-5.4); SAMPLE HEMOLYSIS CHECK 0; SAMPLE ICTERIC CHECK 0; SAMPLE LIPEMIA CHECK 0; SODIUM 132 MEQ/L (136-147); UREA NITROGEN (BUN) 26 mg/dL (9-23); VANCOMYCIN, TROUGH 15.9 MCG/ML (10-20)
[2017-02-15 07:08] LABS: GLUCOSE 80 mg/dL (70-99)
[2017-02-15 08:30] VITALS: BP 178/74
[2017-02-15 11:55] VITALS: BP 156/72
[2017-02-15 12:06] LABS: POINT-OF-CARE METER ID UU14208750
[2017-02-15 15:29] LABS: POINT-OF-CARE METER ID UU13113698; POINT-OF-CARE USER ID ENVKC36
[2017-02-15 17:00] VITALS: BP 141/65
[2017-02-15 17:16] LABS: POINT-OF-CARE METER ID UU14208750
[2017-02-15 20:25] VITALS: BP 138/63
[2017-02-16 00:57] VITALS: BP 113/57
[2017-02-16 04:54] VITALS: BP 135/72
[2017-02-16 08:10] VITALS: BP 142/71
[2017-02-16 09:04] LABS: POINT-OF-CARE METER ID UU14162508
[2017-02-16 11:51] LABS: POINT-OF-CARE METER ID UU14162508
[2017-02-16 17:44] LABS: POINT-OF-CARE METER ID UU13113681
[2017-02-16 21:21] VITALS: BP 124/72
[2017-02-16 21:23] LABS: POINT-OF-CARE METER ID UU14208750
[2017-02-17 00:23] VITALS: BP 125/68
[2017-02-17 07:36] VITALS: BP 135/63
[2017-02-17 07:46] LABS: POINT-OF-CARE METER ID UU14314084
[2017-02-17 11:42] LABS: POINT-OF-CARE METER ID UU14314084
[2017-02-17 15:37] VITALS: BP 154/69
[2017-02-17 15:52] LABS: POINT-OF-CARE METER ID UU14314084
[2017-02-17 22:38] LABS: POINT-OF-CARE METER ID UU14208750
[2017-02-17 22:47] LABS: POINT-OF-CARE METER ID UU14314084
[2017-02-17 22:51] VITALS: BP 144/64
[2017-02-17 23:13] LABS: POINT-OF-CARE METER ID UU14208750
[2017-02-18 06:47] LABS: POINT-OF-CARE METER ID UU14208750
[2017-02-18 07:07] LABS: EOSINOPHIL (%) 0 % (0-5); HEMATOCRIT 25.8 % (36.0-46.0); IMMATURE GRANULOCYTE (%) 0.3 % (0.0-0.7); INSTRUMENT ABS NEUTROPHIL CT 2.1 K/uL; LYMPHOCYTE COUNT 0.9 K/uL (1.0-2.8); MCH 37.1 PG (29.0-34.0); MCHC 34.1 G/DL (30.0-36.0); MCV 108.9 FL (83-99); MEAN PLAT.VOLUME 9.4 uM^3 (9.5-12.4); MONOCYTE COUNT 0.5 K/uL (0-0.8); NEUTROPHIL COUNT 2.1 K/uL (1.8-6.4); PLATELET COUNT 100 K/uL (156-360); RBC DIS.WIDTH-CV 14.8 % (11.8-14.6); RBC DIS.WIDTH-SD 59.6 % (39-53); RED BLOOD COUNT 2.37 M/uL (3.80-5.20); WHITE BLOOD COUNT 3.5 K/uL (4.1-10.2)
[2017-02-18 07:30] VITALS: BP 144/66
[2017-02-18 08:08] LABS: ANION GAP 6 MEQ/L (2-14); CHLORIDE 102 MEQ/L (99-109); GFR ESTIMATE (CALCULATED) 14 mL/min/; GLUCOSE 75 mg/dL (70-99); POTASSIUM 4.8 MEQ/L (3.7-5.4); SAMPLE HEMOLYSIS CHECK 0; SAMPLE ICTERIC CHECK 0; SAMPLE LIPEMIA CHECK 0; SODIUM 134 MEQ/L (136-147); UREA NITROGEN (BUN) 35 mg/dL (9-23); VANCOMYCIN, TROUGH 16.9 MCG/ML (10-20)
[2017-02-18 11:14] LABS: POINT-OF-CARE METER ID UU14162508; POINT-OF-CARE USER ID STWLMB34
[2017-02-18 14:24] LABS: RESEND RESULTS RESEND RESULTS
[2017-02-18 15:41] LABS: ADD MIUA? YES; BILIRUBIN NEGATIVE; BLOOD MODERATE; COLOR YELLOW ((YELLOW)); GLUCOSE (STRIP) NEGATIVE; KETONES NEGATIVE; LEUKOCYTES SMALL; NITRITE NEGATIVE; PROTEIN (STRIP) 30; SPECIFIC GRAVITY 1.009 (1.000-1.030); UROBILINOGEN 0.2 MG/DL (0.2-1.0)
[2017-02-18 15:53] LABS: BACTERIA RARE /HPF; EPITHELIAL CELLS 1+ /HPF; MUCUS NONE SEEN /LPF; UCUL ADDED? YES; WHITE BLOOD CELLS CLUMP RARE /HPF (0-5)
[2017-02-18 18:26] VITALS: BP 160/80
[2017-02-18 19:20] VITALS: BP 140/79
[2017-02-18 23:00] VITALS: BP 123/65
[2017-02-19 03:25] VITALS: BP 145/70
[2017-02-19 06:17] LABS: POINT-OF-CARE METER ID UU14314084
[2017-02-19 07:55] LABS: EOSINOPHIL (%) 0 % (0-5); HEMATOCRIT 24.8 % (36.0-46.0); IMMATURE GRANULOCYTE (%) 0.4 % (0.0-0.7); INSTRUMENT ABS NEUTROPHIL CT 1.7 K/uL; LYMPHOCYTE COUNT 0.7 K/uL (1.0-2.8); MCH 36.3 PG (29.0-34.0); MCHC 33.1 G/DL (30.0-36.0); MCV 109.7 FL (83-99); MONOCYTE (%) 12.6 % (3-12); MONOCYTE COUNT 0.4 K/uL (0-0.8); NEUTROPHIL (%) 61.4 % (45-76); NEUTROPHIL COUNT 1.7 K/uL (1.8-6.4); PLATELET COUNT 93 K/uL (156-360); RBC DIS.WIDTH-CV 15.2 % (11.8-14.6); RBC DIS.WIDTH-SD 61.4 % (39-53); RED BLOOD COUNT 2.26 M/uL (3.80-5.20); WHITE BLOOD COUNT 2.8 K/uL (4.1-10.2)
[2017-02-19 08:11] LABS: ANION GAP 6 MEQ/L (2-14); CHLORIDE 101 MEQ/L (99-109); POTASSIUM 4.7 MEQ/L (3.7-5.4); SAMPLE HEMOLYSIS CHECK 0; SAMPLE ICTERIC CHECK 0; SAMPLE LIPEMIA CHECK 0; SODIUM 130 MEQ/L (136-147)
[2017-02-19 08:22] LABS: GFR ESTIMATE (CALCULATED) 13 mL/min/; UREA NITROGEN (BUN) 41 mg/dL (9-23)
[2017-02-19 08:25] LABS: GLUCOSE 199 mg/dL (70-99)
[2017-02-19 08:50] LABS: POINT-OF-CARE METER ID UU14314084
[2017-02-19] MEDS ORDERED: VANCOMYCIN HCL1 GM IV (09:41)
[2017-02-19] MEDS ORDERED: LEVEMIR100 UNIT/2 SC (09:48)
[2017-02-19 11:58] VITALS: BP 124/61
[2017-02-19 12:21] LABS: POINT-OF-CARE METER ID UU14162508
== END 2017-02-19 13:31 | DRG 264 ==
LOC: EME 15:16 → EDOF 19:44 → 4EAST 19:44 → 2EAST 19:44 → ENRESERV 19:46 → 4EAST 22:43 → ENRESERV 02-15 01:36 → 2EAST 02-15 02:46
PROVIDERS: Emergency Medicine; Internal Medicine; Internal Medicine Gastroenterology; Internal Medicine Nephrology; Physician Assistant
PROC: 00JU3ZZ Inspection of Spinal Canal, Percutaneous Approach (ICD-10-PCS; principal; 2017-01-28)
PROC: 03PY0JZ Removal of Synthetic Substitute from Upper Artery, Open Approach (ICD-10-PCS; 2017-01-30)
PROC: 02HV33Z Insertion of Infusion Device into Superior Vena Cava, Percutaneous Approach (ICD-10-PCS; 2017-02-01)
PROC: 5A1D70Z Performance of Urinary Filtration, Intermittent, Less than 6 Hours Per Day (ICD-10-PCS; 2017-02-01)
PROC: 02HV33Z Insertion of Infusion Device into Superior Vena Cava, Percutaneous Approach (ICD-10-PCS; 2017-02-05)
PROC: 0DB68ZX Excision of Stomach, Via Natural or Artificial Opening Endoscopic, Diagnostic (ICD-10-PCS; 2017-02-05)
PROC: 02PY33Z Removal of Infusion Device from Great Vessel, Percutaneous Approach (ICD-10-PCS; 2017-02-11)
PROC: 02HV33Z Insertion of Infusion Device into Superior Vena Cava, Percutaneous Approach (ICD-10-PCS; 2017-02-15)
PROC: 02HV33Z Insertion of Infusion Device into Superior Vena Cava, Percutaneous Approach (ICD-10-PCS; 2017-02-18)
DX: T82.7XXA Infection and inflammatory reaction due to other cardiac and vascular devices, implants and grafts, initial encounter (principal); Y83.2 Surgical operation with anastomosis, bypass or graft as the cause of abnormal reaction of the patient, or of later complication, without mention of misadventure at the time of the procedure; A41.02 Sepsis due to Methicillin resistant Staphylococcus aureus; I13.2 Hypertensive heart and chronic kidney disease with heart failure and with stage 5 chronic kidney disease, or end stage renal disease; I50.9 Heart failure, unspecified; E11.22 Type 2 diabetes mellitus with diabetic chronic kidney disease; N18.6 End stage renal disease; E11.649 Type 2 diabetes mellitus with hypoglycemia without coma; E87.1 Hypo-osmolality and hyponatremia; E11.43 Type 2 diabetes mellitus with diabetic autonomic (poly)neuropathy; E11.21 Type 2 diabetes mellitus with diabetic nephropathy; K31.84 Gastroparesis; D69.6 Thrombocytopenia, unspecified; D63.1 Anemia in chronic kidney disease; K29.70 Gastritis, unspecified, without bleeding; K57.30 Diverticulosis of large intestine without perforation or abscess without bleeding; K74.60 Unspecified cirrhosis of liver; K76.0 Fatty (change of) liver, not elsewhere classified; Z99.2 Dependence on renal dialysis; J43.9 Emphysema, unspecified; I25.10 Atherosclerotic heart disease of native coronary artery without angina pectoris; E03.9 Hypothyroidism, unspecified; E78.5 Hyperlipidemia, unspecified; F41.9 Anxiety disorder, unspecified; F32.9 Major depressive disorder, single episode, unspecified; Z79.4 Long term (current) use of insulin; Z86.73 Personal history of transient ischemic attack (TIA), and cerebral infarction without residual deficits; Z80.3 Family history of malignant neoplasm of breast; Z87.891 Personal history of nicotine dependence
CPT/HCPCS: 70450; 71010; 71020; 74177; 80048; 80053; 80069; 80170; 80202; 81003; 82565; 82607; 82746; 82948; 83540; 83605; 83690; 84466; 84484; 84999; 85025; 85027; 85610; 85730; 86706; 87040; 87070; 87075; 87077; 87086; 87147; 87186; 87205; 87340; 87493; 87502; 87641; 87801; 88305; 88342 TC; 92610 GN; 93005; 93306; 94799; 99202; 99212; 99281; 99285; C1750; C1752; C1788; C9113; J0881; J1580; J1644; J1815; J2250; J2405; J2543; J2550; J2765; J3010; J3370; J7030; J7050; Q0167; S0020

== ENCOUNTER 2017-02-23 20:56 | Emergency (ER) | payer OTHER, MEDICARE ==
[~2017-02-23] VITALS: Ht 160 cm; Wt 76.2 kg
[~2017-02-23 20:56] MED LIST changes: +ACETAMINOPHEN325 M1 PO; +ATORVASTATIN CA10 MG PO; +BAYER CHEWABLE81 MG PO; +CARDIZEM CD120 MG PO; +DAILY VITE1 EAC1 PO; +EFFEXOR37.5 MG PO; +ENULOSE10 GM/15 M PO; +GABAPENTIN100 MG PO; +HYDROCODON-ACE1 EAC7 PO; +MOBIC7.5 MG PO; +RENVELA0.8 GM PO; +RENVELA800 MG PO; +SERTRALINE HCL25 MG PO; +SILTUSSIN100 MG/51 PO; +VANCOMYCIN HCL1 GM IV; +VITAMIN D32000 UNI1 PO
[2017-02-23 21:43] LABS: EOSINOPHIL (%) 0 % (0-5); HEMATOCRIT 26.8 % (36.0-46.0); IMMATURE GRANULOCYTE (%) 0.8 % (0.0-0.7); INSTRUMENT ABS NEUTROPHIL CT 4.2 K/uL; LYMPHOCYTE COUNT 0.3 K/uL (1.0-2.8); MCHC 32.5 G/DL (30.0-36.0); MEAN PLAT.VOLUME 9.2 uM^3 (9.5-12.4); MONOCYTE (%) 8.2 % (3-12); MONOCYTE COUNT 0.4 K/uL (0-0.8); NEUTROPHIL (%) 84.2 % (45-76); NEUTROPHIL COUNT 4.2 K/uL (1.8-6.4); PLATELET COUNT 101 K/uL (156-360); RBC DIS.WIDTH-CV 15.8 % (11.8-14.6); RBC DIS.WIDTH-SD 65.1 % (39-53); RED BLOOD COUNT 2.35 M/uL (3.80-5.20)
[2017-02-23 21:49] LABS: CHLORIDE 98 mEq/L (99-109); POTASSIUM 5.5 mEq/L (3.7-5.4); SODIUM 130 mEq/L (136-147)
[2017-02-23 21:51] LABS: GLUCOSE 222 mg/dL (70-99)
[2017-02-23 21:53] LABS: ANION GAP 5 MEQ/L (2-14); TOTAL BILIRUBIN 0.6 mg/dL (0.0-1.0)
[2017-02-23 21:55] LABS: ALKALINE PHOSPHATASE 121 IU/L (3-129); GFR ESTIMATE (CALCULATED) 18 mL/min/
[2017-02-23 22:05] LABS: UREA NITROGEN (BUN) 18 mg/dL (9-23)
[2017-02-23 22:29] LABS: ADD MIUA? YES; BILIRUBIN NEGATIVE; BLOOD MODERATE; COLOR YELLOW ((YELLOW)); GLUCOSE (STRIP) NEGATIVE; KETONES NEGATIVE; LEUKOCYTES LARGE; NITRITE NEGATIVE; PROTEIN (STRIP) 100; SPECIFIC GRAVITY 1.009 (1.000-1.030); UROBILINOGEN 0.2 MG/DL (0.2-1.0)
[2017-02-23 22:40] LABS: BACTERIA NONE SEEN /HPF; EPITHELIAL CELLS 1+ /HPF; HYALINE CASTS 0-5 /LPF; MUCUS NONE SEEN /LPF; RED BLOOD CELLS TNTC /HPF (0-5); UCUL ADDED? YES; UNCLASSIFIED CASTS 0-5 /LPF; UNCLASSIFIED CRYSTALS 2+ /HPF; WHITE BLOOD CELLS TNTC /HPF (0-5)
[2017-02-24] MEDS ORDERED: CEFTRIAXONE2 G1 IV (01:14)
[2017-02-24 04:11] VITALS: BP 151/78
== END 2017-02-24 04:21 ==
LOC: EME → EDBD 20:56 → EME 02-24 04:21
DX: N39.0 Urinary tract infection, site not specified (principal); M54.5 Low back pain; R50.9 Fever, unspecified; E11.22 Type 2 diabetes mellitus with diabetic chronic kidney disease; N18.3 Chronic kidney disease, stage 3 (moderate); Z79.4 Long term (current) use of insulin; Z86.14 Personal history of Methicillin resistant Staphylococcus aureus infection; J44.9 Chronic obstructive pulmonary disease, unspecified; F32.9 Major depressive disorder, single episode, unspecified; E78.5 Hyperlipidemia, unspecified; I25.2 Old myocardial infarction; Z86.73 Personal history of transient ischemic attack (TIA), and cerebral infarction without residual deficits; E03.9 Hypothyroidism, unspecified; F41.9 Anxiety disorder, unspecified; K21.9 Gastro-esophageal reflux disease without esophagitis; Z88.2 Allergy status to sulfonamides; Z88.6 Allergy status to analgesic agent; Z88.0 Allergy status to penicillin; Z87.891 Personal history of nicotine dependence
CPT/HCPCS: 72148; 80053; 81003; 83605; 85025; 87040; 87077; 87086; 87147; 87186; 87801; 99281; 99285; J0696; J7050

== ENCOUNTER → 2017-03-28 | Outpatient (CLI) | payer OTHER, MEDICARE ==
[~2017-03-28] MED LIST changes: +CEFTRIAXONE2 G1 IV
== END ==
LOC: NUC 09:34
DX: M41.86 Other forms of scoliosis, lumbar region (principal); M19.012 Primary osteoarthritis, left shoulder; M19.011 Primary osteoarthritis, right shoulder; M47.895 Other spondylosis, thoracolumbar region; Z96.653 Presence of artificial knee joint, bilateral
CPT/HCPCS: 78315; A9503

== ENCOUNTER 2017-04-12 15:28 | Inpatient (IN) | payer OTHER, MEDICARE ==
[~2017-04-12] VITALS: Ht 160 cm; Wt 63.7 kg
[~2017-04-12 15:28] MED LIST changes: -DAILY VITE1 EAC1 PO; +DIALYVITE 3,001 EACH PO
[2017-04-12 17:04] LABS: HEMATOCRIT 38.2 % (36.0-46.0); MCH 34.1 PG (29.0-34.0); MCHC 33.8 G/DL (30.0-36.0); RBC DIS.WIDTH-CV 14.4 % (11.8-14.6); RBC DIS.WIDTH-SD 53.5 % (39-53); WHITE BLOOD COUNT 13.1 K/uL (4.1-10.2)
[2017-04-12 17:08] LABS: HEMOGLOBIN 12.9 G/DL (11.9-15.5); MCV 101.1 FL (83-99); RED BLOOD COUNT 3.78 M/uL (3.80-5.20)
[2017-04-12 17:31] LABS: TROP-I INTERPRETATION NEGATIVE; TROPONIN-I 0.01 ng/mL (0.0-0.30)
[2017-04-12 17:37] LABS: ALBUMIN 2.9 g/dL (3.2-4.8)
[2017-04-12 17:38] LABS: CHLORIDE 95 mEq/L (99-109); POTASSIUM 4.1 mEq/L (3.7-5.4); SODIUM 133 mEq/L (136-147)
[2017-04-12 17:40] LABS: GLUCOSE 196 mg/dL (70-99); TOTAL PROTEIN 5.8 g/dL (6.4-8.3)
[2017-04-12 17:42] LABS: TOTAL BILIRUBIN 0.6 mg/dL (0.0-1.0)
[2017-04-12 17:43] LABS: ALKALINE PHOSPHATASE 142 IU/L (3-129)
[2017-04-12 17:44] LABS: CREATININE 1.4 mg/dL (0.6-1.3); GFR ESTIMATE (CALCULATED) 39 mL/min/
[2017-04-12 17:45] LABS: AST (GOT) 25 IU/L (2-34); UREA NITROGEN (BUN) 8 mg/dL (9-23)
[2017-04-12 17:46] LABS: ALT (GPT) 16 IU/L (3-49)
[2017-04-12 17:47] LABS: LIPASE 127 U/L (1.0-51.0)
[2017-04-12 18:27] LABS: PLATELET COUNT 209 K/uL (156-360)
[2017-04-12] MEDS ORDERED: MARINOL2.5 M1 PO (22:23)
[2017-04-12] MEDS ORDERED: EFFEXOR XR37.5 MG PO (22:25)
[2017-04-12] MEDS ORDERED: ZOFRAN4 MG/2 ML IV (22:37)
[2017-04-12] MEDS ORDERED: CATAPRES0.1 MG PO (22:38)
[2017-04-12] MEDS ORDERED: GLUCAGEN1 MG/1 ML IM (22:38)
[2017-04-12] MEDS ORDERED: [UNRECOGNIZED DRUG - OTHER] PO (22:38)
[2017-04-12 23:25] VITALS: BP 120/65
[2017-04-13] VITALS (7 sets, daily range): BP systolic 100–186; BP diastolic 59–87
[2017-04-14 04:34] VITALS: BP 125/58
[2017-04-14 08:23] VITALS: BP 154/82
[2017-04-14 12:15] VITALS: BP 93/52
[2017-04-14 16:33] VITALS: BP 121/59
[2017-04-14 19:42] VITALS: BP 110/50
[2017-04-14 23:39] VITALS: BP 109/59
[2017-04-15 03:23] VITALS: BP 121/62
[2017-04-15 08:06] VITALS: BP 128/72
[2017-04-15 09:06] LABS: CHLORIDE 93 MEQ/L (99-109); POTASSIUM 3.8 MEQ/L (3.7-5.4)
[2017-04-15 09:12] LABS: GLUCOSE 294 mg/dL (70-99); PHOSPHORUS 2.2 mg/dL (2.5-4.9); UREA NITROGEN (BUN) 16 mg/dL (9-23)
[2017-04-15 09:13] LABS: BASOPHIL (%) 0 % (0-1); EOSINOPHIL (%) 0 % (0-5); HEMOGLOBIN 9.4 G/DL (11.9-15.5); IMMATURE GRANULOCYTE (%) 0.6 % (0.0-0.7); LYMPHOCYTE (%) 10.6 % (15-42); LYMPHOCYTE COUNT 0.5 K/uL (1.0-2.8); MCH 34.2 PG (29.0-34.0); MCHC 33.6 G/DL (30.0-36.0); MCV 101.8 FL (83-99); MONOCYTE (%) 9.7 % (3-12); MONOCYTE COUNT 0.5 K/uL (0-0.8); NEUTROPHIL (%) 79.1 % (45-76); NEUTROPHIL COUNT 3.8 K/uL (1.8-6.4); PLATELET COUNT 98 K/uL (156-360); RBC DIS.WIDTH-CV 14.7 % (11.8-14.6); RED BLOOD COUNT 2.75 M/uL (3.80-5.20); WHITE BLOOD COUNT 4.8 K/uL (4.1-10.2)
[2017-04-15 09:22] LABS: CREATININE 2.1 MG/DL (0.6-1.3); GFR ESTIMATE (CALCULATED) 24 mL/min/; SODIUM 124 MEQ/L (136-147)
[2017-04-15 10:14] LABS: HEPATITIS B SURFACE ANTIGEN Nonreactive
[2017-04-15 12:09] VITALS: BP 130/72
[2017-04-15 16:30] VITALS: BP 124/78
[2017-04-15 20:02] VITALS: BP 97/63
[2017-04-15 23:56] VITALS: BP 111/57
[2017-04-16 03:51] VITALS: BP 131/71
[2017-04-16 06:27] LABS: HEMATOCRIT 28.7 % (36.0-46.0); HEMOGLOBIN 9.5 G/DL (11.9-15.5); MCH 33.7 PG (29.0-34.0); MCHC 33.1 G/DL (30.0-36.0); MCV 101.8 FL (83-99); PLATELET COUNT 102 K/uL (156-360); RBC DIS.WIDTH-CV 14.6 % (11.8-14.6); RBC DIS.WIDTH-SD 54.5 % (39-53); RED BLOOD COUNT 2.82 M/uL (3.80-5.20)
[2017-04-16 06:49] LABS: ALBUMIN 1.9 G/DL (3.2-4.8); ALKALINE PHOSPHATASE 90 IU/L (3-129); ALT (GPT) 10 IU/L (3-49); AST (GOT) 12 IU/L (2-34); CHLORIDE 97 MEQ/L (99-109); CREATININE 1.7 MG/DL (0.6-1.3); GFR ESTIMATE (CALCULATED) 31 mL/min/; GLUCOSE 261 mg/dL (70-99); POTASSIUM 3.5 MEQ/L (3.7-5.4); TOTAL BILIRUBIN 0.4 MG/DL (0.0-1.0); TOTAL PROTEIN 4.2 G/DL (6.4-8.3); UREA NITROGEN (BUN) 9 mg/dL (9-23)
[2017-04-16 06:58] LABS: SODIUM 131 MEQ/L (136-147); VANCOMYCIN, TROUGH 23.5 MCG/ML (10-20)
[2017-04-16 07:41] VITALS: BP 146/67
[2017-04-16 12:02] VITALS: BP 108/55
[2017-04-16 15:28] VITALS: BP 119/64
[2017-04-16 19:46] VITALS: BP 105/59
[2017-04-16 23:11] VITALS: BP 118/62
[2017-04-17 04:46] VITALS: BP 127/60
[2017-04-17 08:18] VITALS: BP 125/66
[2017-04-17 12:06] VITALS: BP 90/60
[2017-04-17 15:57] VITALS: BP 96/60
[2017-04-17 20:01] VITALS: BP 107/57
[2017-04-17 23:32] VITALS: BP 169/75
[2017-04-18 00:01] VITALS: BP 112/60
[2017-04-18 04:10] VITALS: BP 129/64
[2017-04-18 05:28] LABS: BASOPHIL (%) 0 % (0-1); EOSINOPHIL (%) 0 % (0-5); HEMOGLOBIN 9.1 G/DL (11.9-15.5); IMMATURE GRANULOCYTE (%) 0.2 % (0.0-0.7); LYMPHOCYTE (%) 9.1 % (15-42); LYMPHOCYTE COUNT 0.4 K/uL (1.0-2.8); MCH 33.7 PG (29.0-34.0); MCHC 33.7 G/DL (30.0-36.0); MONOCYTE (%) 10.5 % (3-12); MONOCYTE COUNT 0.5 K/uL (0-0.8); NEUTROPHIL (%) 80.2 % (45-76); NEUTROPHIL COUNT 3.5 K/uL (1.8-6.4); PLATELET COUNT 101 K/uL (156-360); RBC DIS.WIDTH-CV 14.8 % (11.8-14.6); RBC DIS.WIDTH-SD 54.1 % (39-53); WHITE BLOOD COUNT 4.3 K/uL (4.1-10.2)
[2017-04-18 06:06] LABS: CHLORIDE 95 MEQ/L (99-109); GFR ESTIMATE (CALCULATED) 21 mL/min/; GLUCOSE 245 mg/dL (70-99); POTASSIUM 3.6 MEQ/L (3.7-5.4); SODIUM 127 MEQ/L (136-147); UREA NITROGEN (BUN) 16 mg/dL (9-23)
[2017-04-18 06:10] LABS: CREATININE 2.4 MG/DL (0.6-1.3)
[2017-04-18 08:19] VITALS: BP 126/68
[2017-04-18 11:15] VITALS: BP 150/70
[2017-04-18 17:02] VITALS: BP 119/62
[2017-04-18 20:16] VITALS: BP 103/59
[2017-04-19] VITALS (7 sets, daily range): BP systolic 121–178; BP diastolic 48–89
[2017-04-19 06:07] LABS: HEMATOCRIT 27.1 % (36.0-46.0); HEMOGLOBIN 9.3 G/DL (11.9-15.5); MCH 33.8 PG (29.0-34.0); MCHC 34.3 G/DL (30.0-36.0); MCV 98.5 FL (83-99); PLATELET COUNT 87 K/uL (156-360); RBC DIS.WIDTH-CV 14.7 % (11.8-14.6); RBC DIS.WIDTH-SD 53.1 % (39-53); RED BLOOD COUNT 2.75 M/uL (3.80-5.20); WHITE BLOOD COUNT 4.5 K/uL (4.1-10.2)
[2017-04-19 06:40] LABS: ALKALINE PHOSPHATASE 97 IU/L (3-129); ALT (GPT) 7 IU/L (3-49); AST (GOT) 10 IU/L (2-34); CHLORIDE 91 MEQ/L (99-109); CREATININE 2.6 MG/DL (0.6-1.3); GFR ESTIMATE (CALCULATED) 19 mL/min/; GLUCOSE 269 mg/dL (70-99); POTASSIUM 3.6 MEQ/L (3.7-5.4); SODIUM 125 MEQ/L (136-147); TOTAL BILIRUBIN 0.4 MG/DL (0.0-1.0); TOTAL PROTEIN 4.5 G/DL (6.4-8.3); UREA NITROGEN (BUN) 19 mg/dL (9-23)
[2017-04-20] VITALS (8 sets, daily range): BP systolic 97–177; BP diastolic 56–95
[2017-04-20 07:13] LABS: BASOPHIL (%) 0 % (0-1); EOSINOPHIL (%) 0 % (0-5); HEMATOCRIT 30.3 % (36.0-46.0); HEMOGLOBIN 10.4 G/DL (11.9-15.5); IMMATURE GRANULOCYTE (%) 0.6 % (0.0-0.7); LYMPHOCYTE (%) 11.6 % (15-42); LYMPHOCYTE COUNT 0.6 K/uL (1.0-2.8); MCH 33.9 PG (29.0-34.0); MCHC 34.3 G/DL (30.0-36.0); MCV 98.7 FL (83-99); MONOCYTE (%) 10.8 % (3-12); MONOCYTE COUNT 0.5 K/uL (0-0.8); NEUTROPHIL COUNT 3.8 K/uL (1.8-6.4); PLATELET COUNT 104 K/uL (156-360); RBC DIS.WIDTH-CV 14.8 % (11.8-14.6); RBC DIS.WIDTH-SD 53.9 % (39-53); RED BLOOD COUNT 3.07 M/uL (3.80-5.20); WHITE BLOOD COUNT 4.9 K/uL (4.1-10.2)
[2017-04-20 07:40] LABS: ALBUMIN 2.1 G/DL (3.2-4.8); CHLORIDE 93 MEQ/L (99-109); SODIUM 128 MEQ/L (136-147); TOTAL BILIRUBIN 0.4 MG/DL (0.0-1.0)
[2017-04-20 07:46] LABS: ALKALINE PHOSPHATASE 112 IU/L (3-129); ALT (GPT) 8 IU/L (3-49); AST (GOT) 13 IU/L (2-34); CREATININE 2.5 MG/DL (0.6-1.3); GFR ESTIMATE (CALCULATED) 20 mL/min/; GLUCOSE 233 mg/dL (70-99); TOTAL PROTEIN 4.6 G/DL (6.4-8.3); UREA NITROGEN (BUN) 22 mg/dL (9-23)
[2017-04-21 01:00] VITALS: BP 133/62
[2017-04-21 03:37] VITALS: BP 135/67
[2017-04-21 08:50] VITALS: BP 177/74
[2017-04-21 12:42] VITALS: BP 162/68
[2017-04-21 23:24] VITALS: BP 170/91
[2017-04-22 05:40] LABS: BASOPHIL (%) 0.1 % (0-1); EOSINOPHIL (%) 0 % (0-5); HEMATOCRIT 31.7 % (36.0-46.0); HEMOGLOBIN 10.8 G/DL (11.9-15.5); IMMATURE GRANULOCYTE (%) 0.4 % (0.0-0.7); LYMPHOCYTE (%) 7.9 % (15-42); LYMPHOCYTE COUNT 0.6 K/uL (1.0-2.8); MCH 33.5 PG (29.0-34.0); MCHC 34.1 G/DL (30.0-36.0); MCV 98.4 FL (83-99); MONOCYTE (%) 8.1 % (3-12); MONOCYTE COUNT 0.6 K/uL (0-0.8); NEUTROPHIL (%) 83.5 % (45-76); NEUTROPHIL COUNT 6.5 K/uL (1.8-6.4); RBC DIS.WIDTH-CV 15.2 % (11.8-14.6); RBC DIS.WIDTH-SD 55.5 % (39-53); RED BLOOD COUNT 3.22 M/uL (3.80-5.20); WHITE BLOOD COUNT 7.8 K/uL (4.1-10.2)
[2017-04-22 05:43] LABS: PLATELET COUNT 144 K/uL (156-360)
[2017-04-22 06:09] LABS: CHLORIDE 89 MEQ/L (99-109); GFR ESTIMATE (CALCULATED) 15 mL/min/; POTASSIUM 4.3 MEQ/L (3.7-5.4); SODIUM 127 MEQ/L (136-147); UREA NITROGEN (BUN) 28 mg/dL (9-23)
[2017-04-22 06:10] LABS: CREATININE 3.1 MG/DL (0.6-1.3); GLUCOSE 365 mg/dL (70-99)
[2017-04-22 07:39] VITALS: BP 139/75
[2017-04-22 18:37] VITALS: BP 126/58
[2017-04-22 23:55] VITALS: BP 142/93
[2017-04-23 03:33] VITALS: BP 136/88
[2017-04-23 08:58] VITALS: BP 142/60
[2017-04-23 11:15] VITALS: BP 142/76
[2017-04-23 16:07] VITALS: BP 136/68
[2017-04-23 20:01] VITALS: BP 117/55
[2017-04-24] VITALS (7 sets, daily range): BP systolic 120–152; BP diastolic 55–80
[2017-04-24 08:47] LABS: HEMOGLOBIN 9.5 G/DL (11.9-15.5); MCHC 32.8 G/DL (30.0-36.0); MCV 100.7 FL (83-99); PLATELET COUNT 123 K/uL (156-360); RBC DIS.WIDTH-CV 15.1 % (11.8-14.6); RBC DIS.WIDTH-SD 56.6 % (39-53); RED BLOOD COUNT 2.88 M/uL (3.80-5.20); WHITE BLOOD COUNT 4.9 K/uL (4.1-10.2)
[2017-04-24 09:15] LABS: CHLORIDE 93 MEQ/L (99-109); CREATININE 2.7 MG/DL (0.6-1.3); GFR ESTIMATE (CALCULATED) 18 mL/min/; GLUCOSE 267 mg/dL (70-99); POTASSIUM 3.8 MEQ/L (3.7-5.4); SODIUM 130 MEQ/L (136-147); UREA NITROGEN (BUN) 19 mg/dL (9-23)
[2017-04-25 04:13] VITALS: BP 132/79
[2017-04-25 06:56] LABS: BASOPHIL (%) 0 % (0-1); EOSINOPHIL (%) 0 % (0-5); HEMATOCRIT 29.2 % (36.0-46.0); HEMOGLOBIN 9.8 G/DL (11.9-15.5); IMMATURE GRANULOCYTE (%) 0.5 % (0.0-0.7); LYMPHOCYTE (%) 7.5 % (15-42); LYMPHOCYTE COUNT 0.5 K/uL (1.0-2.8); MCH 33.7 PG (29.0-34.0); MCHC 33.6 G/DL (30.0-36.0); MCV 100.3 FL (83-99); MONOCYTE (%) 8.6 % (3-12); MONOCYTE COUNT 0.5 K/uL (0-0.8); NEUTROPHIL (%) 83.4 % (45-76); NEUTROPHIL COUNT 5.1 K/uL (1.8-6.4); PLATELET COUNT 102 K/uL (156-360); RBC DIS.WIDTH-CV 15.1 % (11.8-14.6); RBC DIS.WIDTH-SD 55.9 % (39-53); RED BLOOD COUNT 2.91 M/uL (3.80-5.20); WHITE BLOOD COUNT 6.2 K/uL (4.1-10.2)
[2017-04-25 07:20] VITALS: BP 136/92
[2017-04-25 07:24] LABS: CHLORIDE 92 MEQ/L (99-109); GFR ESTIMATE (CALCULATED) 24 mL/min/; GLUCOSE 286 mg/dL (70-99); POTASSIUM 3.7 MEQ/L (3.7-5.4); SODIUM 131 MEQ/L (136-147); UREA NITROGEN (BUN) 13 mg/dL (9-23)
[2017-04-25 07:30] LABS: CREATININE 2.1 MG/DL (0.6-1.3)
[2017-04-25 10:09] LABS: CARBOXY HGB 1.7 % (0-5); COMMENTS - BLOOD GASES A+C+; DEVICE NC; METHEMOGLOBIN 1.9 % (0-1.5); O2 FLOW 5 L/MIN; PCO2 < 19 mm Hg (35-45); PO2 70 mm Hg (80-100); SITE RR; pH 7.69 (7.35-7.45)
[2017-04-25 12:00] VITALS: BP 197/94
[2017-04-25 20:05] VITALS: BP 131/78
[2017-04-25 23:00] VITALS: BP 139/81
[2017-04-26 03:40] VITALS: BP 122/78
[2017-04-26 07:10] VITALS: BP 122/62
[2017-04-26 08:22] LABS: HEMATOCRIT 26.7 % (36.0-46.0); MCH 33.8 PG (29.0-34.0); MCHC 33.7 G/DL (30.0-36.0); MCV 100.4 FL (83-99); PLATELET COUNT 117 K/uL (156-360); RBC DIS.WIDTH-CV 15.1 % (11.8-14.6); RBC DIS.WIDTH-SD 55.7 % (39-53); RED BLOOD COUNT 2.66 M/uL (3.80-5.20); WHITE BLOOD COUNT 5.6 K/uL (4.1-10.2)
[2017-04-26 08:40] LABS: ALBUMIN 2.4 G/DL (3.2-4.8); ALKALINE PHOSPHATASE 108 IU/L (3-129); ALT (GPT) 8 IU/L (3-49); AST (GOT) 10 IU/L (2-34); CHLORIDE 92 MEQ/L (99-109); CREATININE 2.9 MG/DL (0.6-1.3); GFR ESTIMATE (CALCULATED) 17 mL/min/; GLUCOSE 262 mg/dL (70-99); POTASSIUM 3.2 MEQ/L (3.7-5.4); SODIUM 131 MEQ/L (136-147); TOTAL BILIRUBIN 0.5 MG/DL (0.0-1.0); TOTAL PROTEIN 5.1 G/DL (6.4-8.3); UREA NITROGEN (BUN) 16 mg/dL (9-23)
[2017-04-26 13:07] VITALS: BP 93/54
[2017-04-26 13:19] LABS: C DIFF TOXIN NEGATIVE (NEGATIVE)
[2017-04-26 15:36] VITALS: BP 125/60
[2017-04-26 19:58] VITALS: BP 119/56
[2017-04-27 00:01] VITALS: BP 115/58
[2017-04-27 03:56] VITALS: BP 136/64
[2017-04-27 08:30] VITALS: BP 134/88
[2017-04-27 17:01] VITALS: BP 130/80
[2017-04-27 20:27] VITALS: BP 158/88
[2017-04-28 00:52] VITALS: BP 152/86
[2017-04-28 03:56] VITALS: BP 137/81
[2017-04-28 08:55] VITALS: BP 139/84
[2017-04-28 17:03] VITALS: BP 140/80
[2017-04-28 23:12] VITALS: BP 138/82
[2017-04-29 07:01] LABS: BASOPHIL (%) 0 % (0-1); EOSINOPHIL (%) 0 % (0-5); HEMATOCRIT 28.4 % (36.0-46.0); HEMOGLOBIN 9.4 G/DL (11.9-15.5); IMMATURE GRANULOCYTE (%) 0.4 % (0.0-0.7); LYMPHOCYTE (%) 12.9 % (15-42); LYMPHOCYTE COUNT 0.6 K/uL (1.0-2.8); MCH 32.9 PG (29.0-34.0); MCHC 33.1 G/DL (30.0-36.0); MCV 99.3 FL (83-99); MONOCYTE (%) 9.4 % (3-12); MONOCYTE COUNT 0.5 K/uL (0-0.8); NEUTROPHIL (%) 77.3 % (45-76); NEUTROPHIL COUNT 3.8 K/uL (1.8-6.4); PLATELET COUNT 83 K/uL (156-360); RBC DIS.WIDTH-CV 14.8 % (11.8-14.6); RED BLOOD COUNT 2.86 M/uL (3.80-5.20); WHITE BLOOD COUNT 4.9 K/uL (4.1-10.2)
[2017-04-29 08:16] LABS: ALBUMIN 2.2 G/DL (3.2-4.8); CHLORIDE 96 MEQ/L (99-109); CREATININE 3.2 MG/DL (0.6-1.3); GFR ESTIMATE (CALCULATED) 15 mL/min/; GLUCOSE 206 mg/dL (70-99); PHOSPHORUS 2.7 mg/dL (2.5-4.9); POTASSIUM 3.4 MEQ/L (3.7-5.4); SODIUM 132 MEQ/L (136-147); UREA NITROGEN (BUN) 14 mg/dL (9-23)
[2017-04-29 11:29] VITALS: BP 137/75
[2017-04-29 15:20] VITALS: BP 134/67
[2017-04-29 17:13] LABS: CREATINE KINASE < 10 IU/L (1-294)
[2017-04-29 23:45] VITALS: BP 132/84
[2017-04-30 07:34] VITALS: BP 139/76
[2017-04-30 16:10] VITALS: BP 154/68
[2017-04-30 21:14] VITALS: BP 122/66
[2017-05-01 00:06] VITALS: BP 141/76
[2017-05-01 04:24] VITALS: BP 152/80; BP 170/77
[2017-05-01 07:15] VITALS: BP 140/60
[2017-05-01 08:51] LABS: HEMATOCRIT 30.9 % (36.0-46.0); HEMOGLOBIN 10.3 G/DL (11.9-15.5); MCH 33.1 PG (29.0-34.0); MCHC 33.3 G/DL (30.0-36.0); MCV 99.4 FL (83-99); RBC DIS.WIDTH-SD 54.8 % (39-53); RED BLOOD COUNT 3.11 M/uL (3.80-5.20); WHITE BLOOD COUNT 9.5 K/uL (4.1-10.2)
[2017-05-01 08:54] LABS: PLATELET COUNT 130 K/uL (156-360)
[2017-05-01 09:11] LABS: ALBUMIN 2.6 G/DL (3.2-4.8); ALKALINE PHOSPHATASE 107 IU/L (3-129); ALT (GPT) 7 IU/L (3-49); AST (GOT) 8 IU/L (2-34); CHLORIDE 95 MEQ/L (99-109); CREATININE 3.1 MG/DL (0.6-1.3); GFR ESTIMATE (CALCULATED) 15 mL/min/; GLUCOSE 231 mg/dL (70-99); POTASSIUM 3.3 MEQ/L (3.7-5.4); SODIUM 131 MEQ/L (136-147); TOTAL BILIRUBIN 0.5 MG/DL (0.0-1.0); TOTAL PROTEIN 5.7 G/DL (6.4-8.3); UREA NITROGEN (BUN) 16 mg/dL (9-23)
[2017-05-01 13:22] VITALS: BP 110/72
[2017-05-01 16:42] VITALS: BP 126/52
[2017-05-02 08:45] VITALS: BP 130/76
[2017-05-02 19:20] VITALS: BP 130/58
[2017-05-02 23:19] VITALS: BP 123/62
[2017-05-03 07:35] VITALS: BP 140/74
[2017-05-03 08:48] LABS: BASOPHIL (%) 0.1 % (0-1); EOSINOPHIL (%) 0 % (0-5); HEMATOCRIT 30.7 % (36.0-46.0); IMMATURE GRANULOCYTE (%) 0.4 % (0.0-0.7); LYMPHOCYTE (%) 12.8 % (15-42); LYMPHOCYTE COUNT 0.9 K/uL (1.0-2.8); MCH 32.6 PG (29.0-34.0); MCHC 32.6 G/DL (30.0-36.0); MONOCYTE (%) 6.9 % (3-12); MONOCYTE COUNT 0.5 K/uL (0-0.8); NEUTROPHIL (%) 79.8 % (45-76); NEUTROPHIL COUNT 5.8 K/uL (1.8-6.4); PLATELET COUNT 116 K/uL (156-360); RBC DIS.WIDTH-CV 15.4 % (11.8-14.6); RBC DIS.WIDTH-SD 56.4 % (39-53); RED BLOOD COUNT 3.07 M/uL (3.80-5.20); WHITE BLOOD COUNT 7.3 K/uL (4.1-10.2)
[2017-05-03] MEDS ORDERED: GENTAMICIN40 MG/1 ML IV (09:02)
[2017-05-03] MEDS ORDERED: DUONEB 2.5-0.5 M3 ML AEROSOL (09:02)
[2017-05-03] MEDS ORDERED: SERTRALINE HCL100 MG PO (09:02)
[2017-05-03] MEDS ORDERED: BUMETANIDE1 MG PO (09:02)
[2017-05-03 09:03] LABS: ALBUMIN 2.5 G/DL (3.2-4.8); CHLORIDE 97 MEQ/L (99-109); GFR ESTIMATE (CALCULATED) 16 mL/min/; GLUCOSE 212 mg/dL (70-99); PHOSPHORUS 2.4 mg/dL (2.5-4.9); POTASSIUM 3.6 MEQ/L (3.7-5.4); SODIUM 133 MEQ/L (136-147); UREA NITROGEN (BUN) 15 mg/dL (9-23)
[2017-05-03 16:14] VITALS: BP 130/70
[2017-05-06] MEDS ORDERED: ACETAMINOPHEN325 M1 PO (12:31)
== END 2017-05-03 19:55 | DRG 871 ==
LOC: EME 15:28 → 3EAST 20:53 → EDOF 20:53 → 2EAST 20:53 → ENRESERV 21:03 → 3EAST 23:12 → ENRESERV 04-22 16:27 → 2EAST 04-22 18:37
PROVIDERS: Emergency Medicine; Family Medicine; Internal Medicine; Internal Medicine Nephrology
PROC: 5A1D70Z Performance of Urinary Filtration, Intermittent, Less than 6 Hours Per Day (ICD-10-PCS; principal; 2017-04-15)
PROC: 0JPT0XZ Removal of Tunneled Vascular Access Device from Trunk Subcutaneous Tissue and Fascia, Open Approach (ICD-10-PCS; principal; 2017-04-15)
PROC: 02H633Z Insertion of Infusion Device into Right Atrium, Percutaneous Approach (ICD-10-PCS; 2017-04-22)
PROC: 5A1D70Z Performance of Urinary Filtration, Intermittent, Less than 6 Hours Per Day (ICD-10-PCS; 2017-04-22)
PROC: 02HV33Z Insertion of Infusion Device into Superior Vena Cava, Percutaneous Approach (ICD-10-PCS; 2017-04-22)
PROC: 5A1D70Z Performance of Urinary Filtration, Intermittent, Less than 6 Hours Per Day (ICD-10-PCS; 2017-04-24)
PROC: 5A1D70Z Performance of Urinary Filtration, Intermittent, Less than 6 Hours Per Day (ICD-10-PCS; 2017-04-26)
PROC: 5A1D70Z Performance of Urinary Filtration, Intermittent, Less than 6 Hours Per Day (ICD-10-PCS; 2017-04-29)
PROC: 5A1D70Z Performance of Urinary Filtration, Intermittent, Less than 6 Hours Per Day (ICD-10-PCS; 2017-05-01)
PROC: 5A1D70Z Performance of Urinary Filtration, Intermittent, Less than 6 Hours Per Day (ICD-10-PCS; 2017-05-03)
DX: A41.02 Sepsis due to Methicillin resistant Staphylococcus aureus (principal); I13.2 Hypertensive heart and chronic kidney disease with heart failure and with stage 5 chronic kidney disease, or end stage renal disease; F50.89 Other specified eating disorder; N18.6 End stage renal disease; J43.9 Emphysema, unspecified; I50.32 Chronic diastolic (congestive) heart failure; E11.22 Type 2 diabetes mellitus with diabetic chronic kidney disease; E11.649 Type 2 diabetes mellitus with hypoglycemia without coma; E11.65 Type 2 diabetes mellitus with hyperglycemia; E87.1 Hypo-osmolality and hyponatremia; J98.11 Atelectasis; E78.5 Hyperlipidemia, unspecified; G89.29 Other chronic pain; I25.10 Atherosclerotic heart disease of native coronary artery without angina pectoris; E03.9 Hypothyroidism, unspecified; M46.49 Discitis, unspecified, multiple sites in spine; K21.9 Gastro-esophageal reflux disease without esophagitis; K59.00 Constipation, unspecified; K74.60 Unspecified cirrhosis of liver; M46.25 Osteomyelitis of vertebra, thoracolumbar region; I25.2 Old myocardial infarction; Z88.0 Allergy status to penicillin; Z88.8 Allergy status to other drugs, medicaments and biological substances; Z79.2 Long term (current) use of antibiotics; Z88.2 Allergy status to sulfonamides; F41.9 Anxiety disorder, unspecified; Z79.4 Long term (current) use of insulin; Z99.2 Dependence on renal dialysis; Z87.891 Personal history of nicotine dependence; Z90.710 Acquired absence of both cervix and uterus; T82.7XXA Infection and inflammatory reaction due to other cardiac and vascular devices, implants and grafts, initial encounter; Y83.2 Surgical operation with anastomosis, bypass or graft as the cause of abnormal reaction of the patient, or of later complication, without mention of misadventure at the time of the procedure; Z68.30 Body mass index [BMI] 30.0-30.9, adult; Z80.3 Family history of malignant neoplasm of breast; Z86.14 Personal history of Methicillin resistant Staphylococcus aureus infection; Z86.73 Personal history of transient ischemic attack (TIA), and cerebral infarction without residual deficits; F33.9 Major depressive disorder, recurrent, unspecified
CPT/HCPCS: 36415; 36600; 71045; 72148; 72157; 74176; 78582; 80048; 80053; 80069; 80170; 80202; 82550; 82803; 82948; 83605; 83690; 84484; 85025; 85027; 85379; 86140; 87040; 87070; 87077; 87147; 87186; 87340; 87493; 87801; 93005; 93306; 93312; 93971; 94640; 94640 76; 99202; 99281; 99285; A9567; C1752; J0878; J1580; J1644; J1815; J2405; J2543; J2765; J3010; J3370; J7040; J7050; Q0167

== ENCOUNTER 2017-05-07 07:43 | Day surgery (SDC) | payer OTHER, MEDICARE ==
[~2017-05-07] VITALS: Ht 160 cm; Wt 56.0 kg
[~2017-05-07 07:43] MED LIST changes: +BUMETANIDE1 MG PO; +CATAPRES0.1 MG PO; +DUONEB 2.5-0.5 M3 ML AEROSOL; +EFFEXOR XR37.5 MG PO; +GENTAMICIN40 MG/1 ML IV; +GLUCAGEN1 MG/1 ML IM; +MARINOL2.5 M1 PO; +ZOFRAN4 MG/2 ML IV; +[UNRECOGNIZED DRUG - OTHER] PO
== END 2017-05-07 12:20 ==
LOC: CATH 07:43
PROVIDERS: Surgery
DX: N18.6 End stage renal disease (principal); Z99.2 Dependence on renal dialysis; Z79.82 Long term (current) use of aspirin
CPT/HCPCS: 82948; C1750; J1644; J2250; J2405; J3010; S0020